=== PATIENT | female | born 1950 | race African-American/Black ===

== ENCOUNTER 2019-07-21 12:13 | Outpatient (CLI) | payer MEDICARE, MEDICAID, SELFPAY ==
--- NOTE | ~2019-07-21 | XR_ITS ---
EXAMINATION: XR lg joint inject/asp w image DATE: 07/21/2019 13:54 INDICATION: Unilateral primary osteoarthritis of the left hip TECHNIQUE: A time-out was performed to verify the patient's name, date of , and procedure to b e performed. The procedure including the risks, benefits, and alternatives was discussed with the pat ient. Risks discussed included bleeding and infection. The patient understood the risks and agreed to proceed. The skin overlying the left hip joint was prepped and draped in usual sterile fashion. An esthetic was administered with 1% lidocaine subcutaneously. A 22 G needle was advanced under fluoros copic guidance into the joint. Injection of 0.5 mL of Omnipaque 240 confirmed intra-articular positi on of the needle. Subsequently, injectate consisting of 7 mL of a 5:2 mixture of 1% lidocaine:10 mg/ mL Kenalog for a total dose of 20 mg Kenalog was instilled. Washout of contrast was seen confirming i ntra-articular administration. The needle was removed and the entry site was cleaned and dressed. Th ere were no immediate complications. Fluoroscopy exposure time was 0.1 minutes. The total number of i mages was 2. FINDINGS: Real-time fluoroscopy demonstrates the needle in the left hip joint. Patient's pain prior t o procedure:7/10. Patient's pain following the procedure: 0/10. IMPRESSION: 1. Left hip injection of local anesthetic and steroid with decrease in the patient's presenting pain. Reviewed, dictated and finalized at location A. IMPRESSION: 1. Left hip injection of local anesthetic and steroid with decrease in the deanne ent's presenting pain.
== END 2019-07-21 12:14 | disposition home or self-care (01) ==
PROVIDERS: Visit Provider Orthopaedic Surgery
DX: M16.12 Unilateral primary osteoarthritis, left hip (principal)
CPT/HCPCS: 20610; 77002; J3301; Q9966

== ENCOUNTER 2020-02-04 19:46 | Observation (INO) | payer MEDICARE, MEDICAID, SELFPAY ==
--- NOTE | ~2020-02-04 | CT_ITS ---
EXAMINATION: CT brain wo con DATE: 02/04/2020 20:31 INDICATION: Altered mental status. TECHNIQUE: Computed tomography (CT) of the head was performed without intravenous contrast. The mA wa s adjusted according to patient size. Iterative reconstruction technique was employed. The dose-lengt h product was 681.00 mGy-cm. COMPARISON: None FINDINGS: There is no intracranial hemorrhage, acute infarction, or abnormal intracranial mass lesion . The ventricles are normal in size. There is mucosal thickening in the paranasal sinuses. The orbits are normal. The mastoid air cells are normal. IMPRESSION: 1. Normal brain. Reviewed, dictated and finalized at location A. CREW MEMBER IMPRESSION: 1. Normal brain.
[2020-02-04 19:53] VITALS: BP 109/74; PULSE 66; RESP 18; TEMP 36.5; O2SAT 100
--- NOTE | 2020-02-04 20:07 | ECG_ITS ---
Measurements Intervals [place] Rate: 60 P: 68 KS: 157 QRS: -4 QRSD: 93 T: 58 QT: 426 QTc: 429 Interpretive Statements SINUS RHYTHM BASELINE WANDER- I, II, AVR, V3, V5 BORDERLINE ECG Electronically Signed On 02-05-2020 7:05:15 REGIONAL SALES DIRECTOR by Johnathon Patino D.O.
--- NOTE | 2020-02-04 20:08 | ED.AMS ---
HPI - Altered Mental Status General Chief Complaint: Overdose Stated Complaint: accidental ingestion of edibles Time Seen by Provider: 02/04/20 19:49 Source: family Mode of arrival: EMS Limitations: no limitations History of Present Illness HPI narrative: Patient 69-year-old female brought in by EMS due to altered mental status, not acting right , described as confusion, not talking, just mumbling. Symptoms started after patient actually took 4 THC edibles thinking it was candies, right after dinner. Son states that the edibles were in the candy packet and the patient did not know that they contained THC. Related Data Home Medications Medication Instructions Recorded Confirmed amlodipine 10 mg PO DAILY 04/27/19 10/08/19 gabapentin 600 mg PO TID 04/27/19 10/08/19 losartan 50 mg PO DAILY 04/27/19 10/08/19 omeprazole 40 mg PO DAILY 04/27/19 10/08/19 rosuvastatin 40 mg PO DAILY 04/27/19 10/08/19 zolpidem 12.5 mg PO HS 04/27/19 10/08/19 Allergies Allergy/AdvReac Type Severity Reaction Status Date / Time acetaminophen Allergy Unknown stomach Verified 07/15/19 14:36 [From Tylenol-Codeine #3] ache codeine Allergy Unknown stomach Verified 07/15/19 14:36 [From Tylenol-Codeine #3] ache Review of Systems Review of Systems: ROS unobtainable: Yes unobtainable due to mental status PMFSH Past Medical History Medical History (Updated 02/04/20 @ 22:03 by Bryan Fung MD) BMI 28.0-28.9,adult Heart disease Nausea alone Pacemaker Surgical History Surgical History History of cholecystectomy History of thymectomy Family History Family History Mother Hypertension Kidney disease Sibling Hypertension Cancer Kidney disease Social History Social History Smoking status: Never smoker Alcohol intake: never Other substance usage details: none Additional occupation/education comments: Disabled Gender identity (if verbalized by the patient): Female Exam Const: General: confusion Limitations: altered mental status and other limitations (Patient nonverbal just mumbling, not following any commands, very confused) HENMT: Head: normal to inspection General nose exam: Normal external nose present, Normal nares present, no nasal discharge noted and no epistaxis Face and sinus: normal facial exam Mouth: Yes lip normal and Yes moist mucous membranes Teeth and gingiva: dentition normal Eyes: Conjunctivae: conjunctivae normal Pupils: Equal, round and reactive pupils present Neck: Neck: normal visual inspection Chest: Chest palpation & inspection: normal inspection of the chest Resp: Effort & Inspection: normal respiratory effort, no retractions and not tachypneic Auscultation: clear to auscultation bilaterally, no crackles, no rales, no rhonchi, no wheezes and lung sounds not diminished Cardio: Rate: regular rate Rhythm: regular rhythm GI: GI Palp: Yes Soft to palpation, No Guarding due to palpation present (GI) and No Rigid due to palpation Auscultation: normal bowel sounds Skin: General skin exam: normal color, no jaundice and no pallor Rashes: no rashes Neuro: Other: Patient slightly lethargic, unable to follow any commands, unable to obtain a full neurological exam Course Course Emergency Course: Patient reexamined around 2129, she still altered, confused we will admit for observation. Discussed with the hospitalist accepted the admit. Vital Signs Vital signs: Vital Signs Temperature 36.5 C 02/04/20 19:53 Pulse Rate 66 02/04/20 19:53 Respiratory Rate 18 02/04/20 19:53 Blood Pressure 109/74 02/04/20 19:53 Pulse Oximetry 100 02/04/20 19:53 Temperature 36.5 C 02/04/20 19:53 Pulse Rate 60 02/04/20 21:45 Respiratory Rate 18 02/04/20 21:45 Blood Pressure 155/67 H 02/04/20 21:45 Pulse Oximetry 99 02/04/20 2
--- NOTE | 2020-02-04 20:23 | PC.NURSE ---
spoke with la at [place] [facility]. report filed
[2020-02-04 20:24] LABS: Basophils Percent Auto 0.5 % (0.2-1.2); Eosinophils Absolute Auto 0.1 K/mm3 (0-0.3); Eosinophils Percent Auto 1.1 % (0-4.4); Hematocrit 33.9 % (37.0-47.0); Hemoglobin 10.9 g/dL (12.0-15.0); Immature Granulocyte Absolute 0.03 K/mm3 (0.00-0.031); Immature Granulocyte Percent A 0.4 % (0-0.5); Lymphocytes Absolute Auto 2.85 K/mm3 (0.9-3.2); Lymphocytes Percent Auto 35.4 % (18.3-44.2); Mean Corpuscular HGB Conc 32.2 g/dl (32-36); Mean Corpuscular Hemoglobin 29.1 pg (26-34); Mean Corpuscular Volume 90.4 fl (80-100); Mean Platelet Volume 11.1 fl (7.4-10.4); Monocytes Absolute Auto 0.7 K/mm3 (0.1-0.6); Monocytes Percent Auto 8.4 % (2.6-8.5); Neutrophils Absolute Auto 4.4 K/mm3 (1.3-6.7); Neutrophils Percent Auto 54.2 % (45.5-73.1); Platelet Count Result 189 k/mm3 (150-375); Red Blood Count 3.75 M/mm3 (4.2-5.4); White Blood Count 8.1 K/mm3 (4.5-10.0)
[2020-02-04 20:40] LABS: Acetaminophen < 10 ug/mL (10-30); Ethanol < 10 mg/dL (<10); Salicylate < 1.0 mg/dL (2-20)
[2020-02-04] MEDS: LORazepam INJ (*CRX) 2 MG/ML VIAL 0.5 MG IV PUSH (20:40)
[2020-02-04] MEDS: LACTATED RINGERS 1,000 ML 999 ML IV CONT (20:41)
[2020-02-04 20:53] LABS: Troponin I < 0.012 ng/mL (0.000-0.034)
[2020-02-04 21:02] LABS: Alanine Aminotransferase 10 U/L (4-35); Albumin Level 4.2 g/dL (3.5-5.1); Alkaline Phosphatase 67 U/L (38-126); Anion Gap 12 mmol/L (8-16); Aspartate Amino Transferase 21 U/L (14-36); Bilirubin,Total 0.4 mg/dL (0.2-1.3); Blood Urea Nitrogen 35 mg/dL (7-17); Calcium 9.5 mg/dL (8.4-10.2); Carbon Dioxide 22 mmol/L (22-30); Chloride 108 mmol/L (98-107); Estimated CRCL calculation 31 ml/min; Estimated Glomerular Filt Rate 39; Glucose 169 mg/dL (65-105); Potassium 3.9 mmol/L (3.4-5.0); Sodium 142 mmol/L (137-145)
[2020-02-04 21:45] VITALS: BP 155/67; PULSE 60; RESP 18; O2SAT 99
--- NOTE | 2020-02-04 21:58 | P.HP_ITS ---
H&P: HPI History of Present Illness Date/Time: 02/04/20 21:58 Chief complaint: accidental ingestion of edibles Narrative: Mackenzie Brown is a 69 year old female [facility] Past Medical History Medical History (Updated 10/08/19 @ 14:45 by Ana Rosa Brown MA) BMI 28.0-28.9,adult Heart disease Nausea alone Pacemaker Surgical History Surgical History History of cholecystectomy History of thymectomy Family History Family History Mother Hypertension Kidney disease Sibling Hypertension Cancer Kidney disease Social History Social History Smoking status: Never smoker Alcohol intake: never Other substance usage details: none Additional occupation/education comments: Disabled Gender identity (if verbalized by the patient): Female Meds Home Medications and Allergies Home Medications Medication Instructions Recorded Confirmed Type amlodipine 10 mg PO DAILY 04/27/19 10/08/19 History gabapentin 600 mg PO TID 04/27/19 10/08/19 History losartan 50 mg PO DAILY 04/27/19 10/08/19 History omeprazole 40 mg PO DAILY 04/27/19 10/08/19 History rosuvastatin 40 mg PO DAILY 04/27/19 10/08/19 History zolpidem 12.5 mg PO HS 04/27/19 10/08/19 History Allergies Allergy/AdvReac Type Severity Reaction Status Date / Time acetaminophen Allergy Unknown stomach Verified 07/15/19 14:36 [From Tylenol-Codeine #3] ache codeine Allergy Unknown stomach Verified 07/15/19 14:36 [From Tylenol-Codeine #3] ache Vital Signs Vital Signs - 24 hr 02/04/20 19:53 02/04/20 21:45 Temperature 36.5 C Pulse Rate 66 60 Respiratory Rate 18 18 Blood Pressure 109/74 155/67 H Pulse Oximetry 100 99 H&P: Results Labs Labs: Short CBC 02/04/20 Range/Units 20:09 WBC 8.1 (4.5-10.0) K/mm3 Hgb 10.9 L (12.0-15.0) g/dL Hct 33.9 L (37.0-47.0) % Plt Count 189 (150-375) k/mm3 BMP 02/04/20 20:08 Sodium 142 Potassium 3.9 Chloride 108 H Carbon Dioxide 22 BUN 35 H D Creatinine 1.60 H Glucose 169 H Calcium 9.5 Cardiac Enzymes 02/04/20 Range/Units 20:09 Troponin I < 0.012 (0.000-0.034) ng/mL Liver Function 02/04/20 Range/Units 20:08 Total Bilirubin 0.4 (0.2-1.3) mg/dL AST 21 (14-36) U/L ALT 10 (4-35) U/L Alkaline Phosphatase 67 (38-126) U/L Albumin 4.2 (3.5-5.1) g/dL
[2020-02-04 22:40] VITALS: BP 135/48; PULSE 61; RESP 18; TEMP 36.2; O2SAT 98; O2SAT 99; BMI 25.9
--- NOTE | 2020-02-04 22:40 | PC.NURSE ---
Complete transfer from stretcher to bed. Disoriented. Unable to answer questions.
--- NOTE | 2020-02-04 22:40 | ADMGEN ---
This patient, Mackenzie Brown, was admitted to -. Patient/family oriented to hospital policies and general routines including ID bracelet, bed and alarms, visiting hours, pain management, procedures, bathroom and other care routines, personal items, smoking policy, room service/diet, and visiting hours. Information on how to activate the Rapid Response Team has been discussed. Patient/Family are encouraged to report perceived risks to care and to ask questions if they do not understand what they are told or what they should do.
[2020-02-04] MEDS: LACTATED RINGERS 1,000 ML 100 ML IV CONT (23:00)
--- NOTE | 2020-02-05 03:11 | PM.SD ---
Same Day Admit/Disch: HPI History of Present Illness Chief complaint: AMS, DRUG OVERDOSE Narrative: Mackenzie Brown is a 69 year old female with past medical history hypertension, GERD, hyperlipidemia, insomnia presents to ED with complaints of altered mental status. She had eaten her nephew's gummies filled with THC, four of them. patient is not taking these kinds of gummies before. She has no history of drug use. patient had a left hip orthopedic surgery planned for 02/05/2020 AM. In the ED: labs stable, vitals stable. She was given ativan as she would not lay still for CT scan. CT head negative. salicylates negative, tyelonol and alcohol negative. EKG sinus rhythm. Patient admitted for observation for drug overdose and then solmnolence from Ativan given in ED. [facility] Past Medical History Medical History BMI 28.0-28.9,adult Essential hypertension GERD (gastroesophageal reflux disease) Heart disease Insomnia Nausea alone Pacemaker Surgical History Surgical History History of cholecystectomy History of thymectomy Family History Family History Mother Hypertension Kidney disease Sibling Hypertension Cancer Kidney disease Social History Social History Smoking status: Never smoker Second hand tobacco smoke exposure: No Alcohol intake: never Substance use: never Other substance usage details: accidental ingest of cannibus gummies,was not aware that they had Cannibus Additional occupation/education comments: Disabled Gender identity (if verbalized by the patient): Female Spiritual care concerns: No Same Day Admit/Disch: Med Pre-admit Medications Home Medications Medication Instructions Recorded Confirmed Type amlodipine 20 mg PO DAILY 04/27/19 02/05/20 History gabapentin 600 mg PO TID 04/27/19 02/05/20 History losartan 100 mg PO DAILY 04/27/19 02/05/20 History omeprazole 40 mg PO DAILY 04/27/19 02/05/20 History rosuvastatin 40 mg PO DAILY 04/27/19 02/05/20 History zolpidem 12.5 mg PO HS 04/27/19 02/05/20 History calcitriol 0.25 mcg PO DAILY 02/05/20 02/05/20 History valacyclovir 500 mg PO DAILY 02/05/20 02/05/20 History Exam Narrative: Exam Narrative: - GENERAL: No acute distress. Well-nourished. pleasant woman - EYES: EOMI. Anicteric. - HENT: Moist mucous membranes. No scleral icterus. - LUNGS: Clear to auscultation bilaterally, no wheezing, rhonchi, or rales. - CARDIOVASCULAR: Regular rate and rhythm. No murmur. No JVD. - ABDOMEN: Soft, non-tender and non-distended. No palpable masses. - EXTREMITIES: No edema. Peripheral pulses 2+. Non-tender. - NEUROLOGIC: No focal neurological deficits. CN II-XII grossly intact. - PSYCHIATRIC: Awake, Alert and oriented x 3. Appropriate mood and affect. - SKIN: No rashes or lesions. Warm. - LYMPH: No cervical lymphadenopathy. DS: Data Data Completed and Pending Labs on day of discharge: Labs from last 24 hours 02/04/20 02/04/20 02/04/20 20:09 20:09 20:09 WBC 8.1 RBC 3.75 L Hgb 10.9 L Hct 33.9 L MCV 90.4 MCH 29.1 MCHC 32.2 RDW 13.0 Plt Count 189 MPV 11.1 H Immature Gran % (Auto) 0.4 Neut % (Auto) 54.2 Lymph % (Auto) 35.4 [place] % (Auto) 8.4 Eos % (Auto) 1.1 Baso % (Auto) 0.5 Lymph # (Auto) 2.85 [place] # (Auto) 0.7 H Eos # (Auto) 0.1 Baso # (Auto) 0.0 Abs Immat Gran (auto) 0.03 Absolute Neuts (auto) 4.4 Absolute Nucleated RBC 0.0 Nucleated RBC % 0.0 Sodium Potassium Chloride Carbon Dioxide Anion Gap BUN Creatinine Estim Creat Clear Calc Estimated GFR Glucose Calcium Total Bilirubin AST ALT Alkaline Phosphatase Troponin I < 0.012 Total Protein Albumin Salicylates <
--- NOTE | 2020-02-05 04:05 | PC.NURSE ---
Alert, Oriented x 3. Discharge instructions reviewed and patient verbalized understanding of information discussed. No complaints voiced. Son at hospital entrance in vehicle. Discharged per wheelchair.
== END 2020-02-05 04:05 | disposition home or self-care (01) ==
LOC: ANHED 22:54 → ANH3MEDSUR 22:58
PROVIDERS: Admitting Provider Student in an Organized Health Care Education/Training Program; Emergency Provider Emergency Medicine; Visit Provider Student in an Organized Health Care Education/Training Program
DX: T40.7X1A Poisoning by cannabis (derivatives), accidental (unintentional), initial encounter (principal); R41.82 Altered mental status, unspecified; N17.9 Acute kidney failure, unspecified; M19.90 Unspecified osteoarthritis, unspecified site; I11.9 Hypertensive heart disease without heart failure; K21.9 Gastro-esophageal reflux disease without esophagitis; E78.5 Hyperlipidemia, unspecified; G47.00 Insomnia, unspecified; Z79.899 Other long term (current) drug therapy; Z95.0 Presence of cardiac pacemaker
CPT/HCPCS: 36415; 70450; 80053; 80307; 84484; 85025; 93005; 96361; 96374; 99285; G0378; J2060; J7120

== ENCOUNTER 2020-06-07 17:33 | Emergency (ER) | payer MEDICARE, MEDICAID, SELFPAY ==
[2020-06-07] VITALS (7 sets, daily range): BP systolic 137–225; BP diastolic 48–85; PULSE 60–71; RESP 12–23; TEMP 36.2–36.9; O2SAT 99–100
--- NOTE | ~2020-06-07 | XR_ITS ---
EXAMINATION: XR chest 1V portable 06/07/2020 21:27 INDICATION: Shortness of breath and hypertension PROCEDURE: AP portable chest COMPARISON: 10/28/2016 FINDINGS: The lungs are clear. The cardiomediastinal silhouette is upper normal limits. Pacemaker le ads in expected position. There are no pleural effusions. There is no pneumothorax suspected. IMPRESSION: 1: NO ACUTE CARDIOPULMONARY DISEASE. Reviewed, dictated and finalized at location A. H PRESS OPERATOR
--- NOTE | ~2020-06-07 | CT_ITS ---
EXAMINATION: CT BRAIN W/O DATE: 06/07/2020 20:27 INDICATION: Headache TECHNIQUE: Computed tomography (CT) of the head was performed without intravenous contrast. The dose- length product was 605.33 mGy-cm. Automated exposure control and iterative reconstruction technique w ere employed. COMPARISON: 02/04/2020. FINDINGS: Normal brain parenchymal volume for age. Normal turcios-white differentiation. No acute intrac ranial hemorrhage, infarction, mass or mass effect. No ventriculomegaly or midline shift. Midline sagittal images demonstrate a normal corpus callosum, c raniovertebral junction and sella turcica. Basilar cisterns are patent. Paranasal sinuses and mastoids are pneumatized. No depressed skull fractures. IMPRESSION: 1. No acute intracranial abnormality. Reviewed, dictated and finalized at location A. CAL BILLING SERVICE
--- NOTE | 2020-06-07 17:40 | ECG_ITS ---
Measurements Intervals [place] Rate: 60 P: 226 KS: 180 QRS: 10 QRSD: 82 T: 45 QT: 421 QTc: 421 Interpretive Statements ELECTRONIC ATRIAL PACEMAKER VOLTAGE CRITERIA FOR LVH BASELINE ARTIFACT- I, V6 BORDERLINE ECG Electronically Signed On 06-07-2020 20:08:07 FABRIC SEPARATOR OPERATOR by Johnathon Patino D.O.
--- NOTE | 2020-06-07 18:28 | PC.NURSE ---
US is gone for the day. Elisa ok for me to cancel that order.
[2020-06-07 20:02] LABS: Basophils Percent Auto 0.7 % (0.2-1.2); Eosinophils Absolute Auto 0.2 K/mm3 (0-0.3); Eosinophils Percent Auto 2.8 % (0-4.4); Hematocrit 39.2 % (37.0-47.0); Hemoglobin 12.4 g/dL (12.0-15.0); Immature Granulocyte Absolute 0.01 K/mm3 (0.00-0.031); Immature Granulocyte Percent A 0.2 % (0-0.5); Lymphocytes Absolute Auto 2.29 K/mm3 (0.9-3.2); Lymphocytes Percent Auto 42.1 % (18.3-44.2); Mean Corpuscular HGB Conc 31.6 g/dl (32-36); Mean Corpuscular Hemoglobin 28.7 pg (26-34); Mean Corpuscular Volume 90.7 fl (80-100); Mean Platelet Volume 11.3 fl (7.4-10.4); Monocytes Absolute Auto 0.5 K/mm3 (0.1-0.6); Neutrophils Absolute Auto 2.5 K/mm3 (1.3-6.7); Neutrophils Percent Auto 45.2 % (45.5-73.1); Platelet Count Result 204 k/mm3 (150-375); Red Blood Count 4.32 M/mm3 (4.2-5.4); Red Cell Distribution Width 13.6 % (11.5-14.5); White Blood Count 5.4 K/mm3 (4.5-10.0)
--- NOTE | 2020-06-07 20:07 | ED.HA ---
HPI - Headache General Chief Complaint: Dizziness Stated Complaint: lower leg swelling Time Seen by Provider: 06/07/20 19:58 History of Present Illness HPI Narrative: 70 yo female w/ h/o htn presents to he Ed with multiple complaints. She reports that she has had severe headaches for the past 4 days. It wraps around her head like a band. She has not had this ttype of headache before. She went to urgent care and was found to have systolic blood pressure greater than 200. She says that she usually checks it every day and it is normal, but she did not check today. She also says that she has been fatigued and had some dyspnea on exertion. She noted some ankle swelling on the left. Uclear when this started. No pain. Related Data Home Medications Medication Instructions Recorded Confirmed amlodipine 20 mg PO DAILY 04/27/19 02/05/20 gabapentin 600 mg PO TID 04/27/19 02/05/20 losartan 100 mg PO DAILY 04/27/19 02/05/20 omeprazole 40 mg PO DAILY 04/27/19 02/05/20 rosuvastatin 40 mg PO DAILY 04/27/19 02/05/20 zolpidem 12.5 mg PO HS 04/27/19 02/05/20 calcitriol 0.25 mcg PO DAILY 02/05/20 02/05/20 valacyclovir 500 mg PO DAILY 02/05/20 02/05/20 Allergies Allergy/AdvReac Type Severity Reaction Status Date / Time acetaminophen Allergy Unknown stomach Verified 02/05/20 00:04 [From Tylenol-Codeine #3] ache codeine Allergy Unknown stomach Verified 02/05/20 00:04 [From Tylenol-Codeine #3] ache Review of Systems Review of Systems: All systems reviewed & are unremarkable except as noted in HPI and below Constitutional: Constitutional: Denies chills, Reports fatigue and Denies fever(s) Eyes: Eyes: Reports no additional eye complaints ENT: Reports system reviewed and no additional complaints, except as documented Cardiovascular: Cardiovascular: Denies chest pain Respiratory: Respiratory: Reports dyspnea Gastrointestinal: Gastrointestinal: Denies abdominal pain, Denies nausea and Denies vomiting Genitourinary: Genitourinary: Reports no additional female genitourinary complaints Musculoskeletal: Musculoskeletal: Reports myalgias Neurologic: Reports headache(s) and Denies weakness [facility] Past Medical History Medical History BMI 28.0-28.9,adult Essential hypertension GERD (gastroesophageal reflux disease) Heart disease Insomnia Nausea alone Pacemaker Surgical History Surgical History History of cholecystectomy History of thymectomy Family History Family History Mother Hypertension Kidney disease Sibling Hypertension Cancer Kidney disease Social History Social History Smoking status: Never smoker Second hand tobacco smoke exposure: No Alcohol intake: never Substance use: never Other substance usage details: accidental ingest of cannibus gummies,was not aware that they had Cannibus Additional occupation/education comments: Disabled Gender identity (if verbalized by the patient): Female Spiritual care concerns: No Exam Const: General: no acute distress and alert Orientation/consciousness: patient oriented x3 HENMT: Head: normal to inspection Ears: TM's normal bilaterally Eyes: Conjunctivae: conjunctivae normal Pupils: Equal, round and reactive pupils present EOM: EOMs intact bilaterally Neck: Neck: normal visual inspection and no lymphadenopathy Chest: Chest palpation & inspection: no tenderness Resp: Effort & Inspection: normal respiratory effort Auscultation: clear to auscultation bilaterally, no rales, no rhonchi and no wheezes Cardio: Jugular venous distension: no JVD Rate: regular rate Rhythm: regular rhythm Heart sounds: no murmurs GI: Inspection: non-distended GI Palp: Yes Soft to palpation and No Tenderness to palpation present (GI) Skin:
[2020-06-07 20:29] LABS: Add Urine Microscopic? YES; Appearance Urine Clear (Clear); Bilirubin Urine Negative (Negative); Blood Urine Negative (Negative); Color Urine Yellow (Yellow); Glucose Urine UA Negative (Negative); Ketones Urine Negative (Negative); Leukocyte Esterase Ur Negative LEU/UL (Negative); Mucus Urine Rare /lpf; Nitrate Urine Negative (Negative); Protein Urine 3+ mg/dL (Negative); RBC Urine 0-2 /hpf (0-2); Specific Grav Ur 1.013 (1.001-1.035); Squamous Epithelial Cell Urine Moderate /hpf (Few); Urobilinogen Urine Negative mg/dL (<2.0); WBC Urine 0-3 /hpf
[2020-06-07] MEDS: hydrALAZINE HCL 20 MG/ML VIAL IV PUSH (21:05)
[2020-06-07] MEDS: METOCLOPRAMIDE HCL INJ 10 MG/2 ML VIAL IV PUSH (21:05)
[2020-06-07 21:15] LABS: Alanine Aminotransferase 10 U/L (4-35); Albumin Level 4.2 g/dL (3.5-5.1); Alkaline Phosphatase 84 U/L (38-126); Anion Gap 5 mmol/L (8-16); Aspartate Amino Transferase 21 U/L (14-36); Bilirubin,Total 0.5 mg/dL (0.2-1.3); Blood Urea Nitrogen 22 mg/dL (7-17); Calcium 9.4 mg/dL (8.4-10.2); Carbon Dioxide 22 mmol/L (22-30); Chloride 114 mmol/L (98-107); Estimated CRCL calculation 37 ml/min; Estimated Glomerular Filt Rate 49; Glucose 89 mg/dL (65-105); Potassium 3.9 mmol/L (3.4-5.0); Sodium 141 mmol/L (137-145)
[2020-06-07] MEDS: diphenhydrAMINE HCl INJ 50 MG/ML VIAL 25 MG IV PUSH (21:35)
[2020-06-07 21:50] LABS: NT Pro B Type Natriuretic Pept 933 PG/ML (5-100); Troponin I < 0.012 ng/mL (0.000-0.034)
== END 2020-06-07 23:56 | disposition home or self-care (01) ==
PROVIDERS: Physician Assistant; Emergency Provider Emergency Medicine
DX: R51.9 Headache, unspecified (principal); R06.00 Dyspnea, unspecified; I11.9 Hypertensive heart disease without heart failure; K21.9 Gastro-esophageal reflux disease without esophagitis; Z95.0 Presence of cardiac pacemaker
CPT/HCPCS: 36415; 70450; 71045; 80053; 81001; 83880; 84484; 85025; 93005; 96365; 96375; 99284; J0131; J0360; J1200; J2765

== ENCOUNTER 2021-05-03 09:07 | Emergency (ER) | payer MEDICARE, MEDICAID, SELFPAY ==
[2021-05-03] VITALS (30 sets, daily range): BP systolic 132–168; BP diastolic 58–83; PULSE 59–64; RESP 12–23; TEMP 36.7; O2SAT 98–100
--- NOTE | ~2021-05-03 | CT_ITS ---
EXAMINATION: CT abdomen pelvis wo con DATE: 05/03/2021 13:33 INDICATION: Diverticulitis. Nausea and vomiting. Diarrhea. TECHNIQUE: Computed tomography (CT) of the abdomen and pelvis was performed without intravenous contr ast. Automated exposure control and iterative reconstruction technique were employed. The dose-length product was 534.69 mGy-cm. COMPARISON: CT abdomen and pelvis 10/28/2016 FINDINGS: The visualized portions of the lung bases demonstrate mild atelectasis. No pleural effusion . The heart size is normal. No pericardial effusion. There are pacer wires in right atrium and right ventricle. There is a small sliding hiatal hernia. There are changes of cholecystectomy. Calcificatio ns in the liver and spleen are consistent with old edematous disease. The pancreas and right adrenal gland are normal. There is an 11 mm mass in left adrenal gland measuring low attenuation, consistent with an adenoma. There is cortical thinning of the kidneys. There are cysts in the kidneys measuring up to 7 mm on the left. There is a 10 mm hemorrhagic cyst in right kidney. There is diverticulosis of the colon without evidence of diverticulitis. The appendix is normal. There are no dilated loops of bowel. There is a lipoma in left iliopsoas muscle. There are no pathologically enlarged lymph nodes. There is no free intraperitoneal fluid. There is a total left hip arthroplasty. There is mild lumbar spondylosis. IMPRESSION: 1. Small sliding hiatal hernia. Reviewed, dictated and finalized at location A. 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
--- NOTE | 2021-05-03 09:43 | ED.GENADULT ---
HPI - General Adult General Chief complaint: Nausea/Vomiting/Diarrhea Stated complaint: nausea/dizzy/diarrhrea Time Seen by Provider: 05/03/21 09:12 Source: patient and RN notes reviewed Mode of arrival: ambulatory Limitations: no limitations History of Present Illness HPI narrative: Patient presented noting that she began to have diarrhea multiple episodes yesterday patient has had some nausea but denies emesis she lives at home by her self has not take anything for symptoms denies any sick contacts she is fully vaccinated for COVID-19. Patient denies any URI symptoms. She notes cramping of the abdomen. She denies any rectal bleeding or melena Related Data Home Medications Medication Instructions Recorded Confirmed amlodipine 20 mg PO DAILY 04/27/19 02/05/20 gabapentin 600 mg PO TID 04/27/19 02/05/20 losartan 100 mg PO DAILY 04/27/19 02/05/20 omeprazole 40 mg PO DAILY 04/27/19 02/05/20 rosuvastatin 40 mg PO DAILY 04/27/19 02/05/20 zolpidem 12.5 mg PO HS 04/27/19 02/05/20 calcitriol 0.25 mcg PO DAILY 02/05/20 02/05/20 valacyclovir 500 mg PO DAILY 02/05/20 02/05/20 valacyclovir 05/03/21 zolpidem PO 05/03/21 Allergies Allergy/AdvReac Type Severity Reaction Status Date / Time codeine AdvReac Unknown stomach Verified 05/03/21 09:43 [From Tylenol-Codeine #3] ache Review of Systems Review of Systems: All systems reviewed & are unremarkable except as noted in HPI and below PMFSH Past Medical History Medical History BMI 28.0-28.9,adult Essential hypertension GERD (gastroesophageal reflux disease) Heart disease Insomnia Nausea alone Pacemaker Surgical History Surgical History History of cholecystectomy History of thymectomy Family History Family History Mother Hypertension Kidney disease Sibling Hypertension Cancer Kidney disease Social History Social History Smoking status: Never smoker Second hand tobacco smoke exposure: No Alcohol intake: never Alcohol use details: none Substance use: never Other substance usage details: accidental ingest of cannibus gummies,was not aware that they had Cannibus Additional occupation/education comments: Disabled Gender identity (if verbalized by the patient): Female Spiritual care concerns: No Exam Narrative: GENERAL: Ill-appearing, well-nourished, and in no acute distress. HEAD: Normocephalic, atraumatic. EYES: PERRLA and EOMI. ENT: Nares clear, no rhinorrhea or epistaxis. Mucous membranes moist. CHEST: Clear to auscultation. No respiratory distress. No wheezes rales or rhonchi HEART: Regular rate and rhythm. No murmur heard. Normal peripheral pulses. ABDOMEN: Soft, mild tenderness of the abdomen no rebound or guarding, nondistended EXTREMITIES: Normal range of motion. No edema. SKIN: Warm, dry, no rash. NEURO: No focal deficits. Alert and oriented x3. Cranial nerves II through XII grossly intact PSYCH: Normal mood and affect. Course Course Emergency Course: Patient presents with abdominal pain nausea and vomiting was evaluated patient was hydrated and given medications with improvement of symptoms feeling much better tolerating p.o. intake she is afebrile nontoxic-appearing nondistressed. She is aware of case findings treatment plan and diagnosis ABCs and vital signs intact and stable feels comfortable with discharge home given indications for return Vital Signs Vital signs: Vital Signs Temperature 98.0 F 05/03/21 09:11 Pulse Rate 60 05/03/21 09:11 Respiratory Rate 18 05/03/21 09:11 Blood Pressure 156/82 H 05/03/21 09:11 Pulse Oximetry 98 05/03/21 09:11 Temperature 98.0 F 05/03/21 09:11 Pulse Rate 59 L 05/03/21 15:03 Respiratory Rate 16 05/03/21 15:03 Blood Pressure
[2021-05-03] MEDS: ONDANSETRON INJ 4 MG/2 ML VIAL IV PUSH ×2 (09:52→14:38)
[2021-05-03] MEDS: FAMOTIDINE 20 MG/2 ML VIAL IV PUSH (09:52)
[2021-05-03 10:23] LABS: Basophils Percent Auto 0.4 % (0.2-1.2); Eosinophils Absolute Auto 0.1 K/mm3 (0-0.3); Eosinophils Percent Auto 0.7 % (0-4.4); Hemoglobin 13.4 g/dL (12.0-15.0); Immature Granulocyte Absolute 0.02 K/mm3 (0.00-0.031); Immature Granulocyte Percent A 0.3 % (0-0.5); Lymphocytes Absolute Auto 1.42 K/mm3 (0.9-3.2); Lymphocytes Percent Auto 20.1 % (18.3-44.2); Mean Corpuscular HGB Conc 32.7 g/dl (32-36); Mean Corpuscular Hemoglobin 30.2 pg (26-34); Mean Corpuscular Volume 92.3 fl (80-100); Monocytes Absolute Auto 0.7 K/mm3 (0.1-0.6); Monocytes Percent Auto 10.5 % (2.6-8.5); Neutrophils Absolute Auto 4.8 K/mm3 (1.3-6.7); Platelet Count Result 190 k/mm3 (150-375); Red Blood Count 4.44 M/mm3 (4.2-5.4); Red Cell Distribution Width 14.9 % (11.5-14.5); White Blood Count 7.1 K/mm3 (4.5-10.0)
[2021-05-03 11:18] LABS: Add Urine Microscopic? YES; Appearance Urine Clear (Clear); Bilirubin Urine Negative (Negative); Blood Urine Negative (Negative); Color Urine Yellow (Yellow); Glucose Urine UA Negative (Negative); Ketones Urine Negative (Negative); Leukocyte Esterase Ur Negative LEU/UL (Negative); Mucus Urine Rare /lpf; Nitrate Urine Negative (Negative); Protein Urine 3+ mg/dL (Negative); RBC Urine 0-2 /hpf (0-2); Specific Grav Ur 1.016 (1.001-1.035); Squamous Epithelial Cell Urine Occasional /hpf (Few); Urobilinogen Urine Negative mg/dL (<2.0); WBC Urine 0-3 /hpf
--- NOTE | 2021-05-03 12:14 | PC.NURSE ---
Pt reports improvement of her symptoms. Resting in NAD currently. This RN attempted to obtain new labs x two attempts unsuccessfully. plastic surgery technician also tried prior to this RN trying. template reproduction technician made aware, will call phlebotomy.
[2021-05-03 13:07] LABS: Alanine Aminotransferase 24 U/L (4-35); Albumin Level 4.4 g/dL (3.5-5.1); Alkaline Phosphatase 72 U/L (38-126); Anion Gap 5 mmol/L (8-16); Aspartate Amino Transferase 26 U/L (14-36); Bilirubin,Total 0.8 mg/dL (0.2-1.3); Blood Urea Nitrogen 29 mg/dL (7-17); Calcium 9.7 mg/dL (8.4-10.2); Carbon Dioxide 26 mmol/L (22-30); Chloride 107 mmol/L (98-107); Estimated CRCL calculation 28 ml/min; Estimated Glomerular Filt Rate 36; Glucose 99 mg/dL (65-110); Lipase 71 U/L (23-300); Potassium 3.8 mmol/L (3.4-5.0); Sodium 138 mmol/L (137-145)
[2021-05-03] MEDS: SODIUM CHLORIDE 0.9% IV 1,000 ML 999 ML IV CONT (14:14)
== END 2021-05-03 16:02 | disposition home or self-care (01) ==
PROVIDERS: Emergency Medicine Emergency Medical Services; Emergency Provider Emergency Medicine
DX: R10.9 Unspecified abdominal pain (principal); R19.7 Diarrhea, unspecified; I10 Essential (primary) hypertension; K21.9 Gastro-esophageal reflux disease without esophagitis; Z95.0 Presence of cardiac pacemaker
CPT/HCPCS: 36415; 74176; 80053; 81001; 83690; 85025; 96361; 96365; 96375; 96376; 99284; J0131; J2405; J7030

== ENCOUNTER 2021-10-25 17:20 | Emergency (ER) | payer MEDICARE, MEDICAID, SELFPAY ==
[2021-10-25] VITALS (30 sets, daily range): BP systolic 107–179; BP diastolic 56–96; PULSE 60–66; RESP 13–22; TEMP 37.1; O2SAT 100
--- NOTE | ~2021-10-25 | XR_ITS ---
EXAMINATION: XR chest 2V Exam Date/Time: 10/25/2021 19:07 CDT HISTORY: lightheadedness, ABD PAIN X 1WK. HX HEART DISEASE, HTN Comparison: 06/07/2020. RESULT: Lines, tubes, and devices: Left chest pacer with intact leads. Cholecystectomy clips. Lungs and pleura: Clear. Cardiomediastinal silhouette: Stable. Other: No acute osseous or upper abdominal finding. IMPRESSION: No acute cardiopulmonary process. Reviewed, dictated and finalized at location K.
--- NOTE | ~2021-10-25 | CT_ITS ---
EXAMINATION: CT abdomen pelvis w con DATE: 10/25/2021 19:06 INDICATION: vomiting, abdominal pain TECHNIQUE: Computed tomography (CT) of the abdomen and pelvis was performed with 100 mL Omnipaque-300 intravenous contrast. Automated exposure control and iterative reconstruction technique were employe d. The dose-length product was 396.01 mGy-cm. COMPARISON: 05/03/2021. FINDINGS: Lower thorax: Incompletely visualized pacer wire. Liver: Normal. Biliary/Gallbladder: Gallbladder is absent. No bile duct dilation. Pancreas: No mass or duct dilation. Spleen: Normal. Adrenals:No mass. Kidneys: Minimal bilateral atrophy/cortical scar. Right midpole 13 mm exophytic indeterminate mass. M ultiple additional hypodensities that are too small to characterize bilaterally. GI tract: No small or large bowel dilation. Normal appendix. Diverticulosis without diverticulitis. Mesentery/Peritoneum: No ascites, mass, or free air. Retroperitoneum: No mass. Atherosclerotic abdominal aortic and/or arterial calcifications. Pelvis: Metallic artifacts obscure pelvic detail. Marked bladder wall thickening. Gas within the blad georgette lumen, may be secondary to recent catheterization or infection. Soft Tissues: Soft tissues and body wall unremarkable. Bones: No acute osseous finding. IMPRESSION: Bladder findings may represent cystitis in the proper clinical context. 2. Indeterminate right adrenal lesion, recommend nonemergent, outpatient renal MRI or CT for further evaluation. Reviewed, dictated and finalized at location K.
--- NOTE | 2021-10-25 18:00 | ECG_ITS ---
Measurements Intervals [place] Rate: 60 P: 249 RI: 174 QRS: 22 QRSD: 92 T: 49 QT: 414 QTc: 414 Interpretive Statements ELECTRONIC ATRIAL PACEMAKER VOLTAGE CRITERIA FOR LVH BASELINE ARTIFACT- I, III, AVL, V5 BORDERLINE ECG Electronically Signed On 10-25-2021 20:14:55 CDT by Johnathon Patino D.O.
--- NOTE | 2021-10-25 18:04 | ED.ABDPAIN ---
HPI - Abdominal Pain General Chief Complaint: Abdominal Pain <Georgiana Joseph PA-C - Last Filed: 10/25/21 21:52> Stated Complaint: abdominal pain, nausea, vomiting <AMY Ojeda Last Filed: 10/25/21 21:52> Time Seen by Provider: 10/25/21 17:53 <Georgiana Joseph PA-C - Last Filed: 10/25/21 21:52> Source: patient <AMY Ojeda Last Filed: 10/25/21 21:52> Mode of arrival: wheelchair <AMY Ojeda Last Filed: 10/25/21 21:52> Limitations: no limitations <AMY Ojeda Last Filed: 10/25/21 21:52> History of Present Illness HPI narrative: This is a 71 year old female that presents to the ER for vomiting and diarrhea. Ongoing over the last couple weeks. Reports she was scheduled for a colonoscopy and endoscopy on of this week. She was called and told it was canceled due to insurance reasons. Denies fever, dysuria, or hematochezia. <AMY Ojeda Last Filed: 10/25/21 21:52> Related Data Home Medications: Home Medications Medication Instructions Recorded Confirmed amlodipine 10 mg tablet 20 mg PO DAILY 04/27/19 02/05/20 gabapentin 600 mg tablet 600 mg PO TID 04/27/19 02/05/20 losartan 50 mg tablet 100 mg PO DAILY 04/27/19 02/05/20 omeprazole 40 mg capsule,delayed 40 mg PO DAILY 04/27/19 02/05/20 release rosuvastatin 40 mg tablet 40 mg PO DAILY 04/27/19 02/05/20 zolpidem 6.25 mg tablet,extended 12.5 mg PO HS 04/27/19 02/05/20 release,multiphase calcitriol 0.25 mcg capsule 0.25 mcg PO DAILY 02/05/20 02/05/20 valacyclovir 500 mg tablet 500 mg PO DAILY 02/05/20 02/05/20 valacyclovir 500 mg tablet 05/03/21 zolpidem 12.5 mg tablet,extended PO 05/03/21 release,multiphase <Georgiana Joseph PA-C - Last Filed: 10/25/21 21:52> Allergies/Adverse Reactions: Allergies Allergy/AdvReac Type Severity Reaction Status Date / Time codeine AdvReac Unknown stomach Verified 10/25/21 18:00 [From Tylenol-Codeine #3] ache <Georgiana Joseph PA-C - Last Filed: 10/25/21 21:52> Review of Systems Review of Systems: CONSTITUTIONAL: Denies fever GASTROINTESTINAL: Reports abdominal pain, nausea, vomiting, and diarrhea. GENITOURINARY: Denies dysuria <Georgiana Joseph PA-C - Last Filed: 10/25/21 21:52> All systems reviewed & are unremarkable except as noted in HPI and below <Georgiana Joseph PA-C - Last Filed: 10/25/21 21:52> [facility] Past Medical History Medical History: Medical History BMI 28.0-28.9,adult Essential hypertension GERD (gastroesophageal reflux disease) Heart disease Insomnia Nausea alone Pacemaker <Georgiana Joseph PA-C - Last Filed: 10/25/21 21:52> Surgical History Surgical History: Surgical History History of cholecystectomy History of thymectomy <Georgiana Joseph PA-C - Last Filed: 10/25/21 21:52> Family History Family History: Family History Mother Hypertension Kidney disease Sibling Hypertension Cancer Kidney disease <Georgiana Joseph PA-C - Last Filed: 10/25/21 21:52> Social History Social History: Social History Smoking status: Never smoker Second hand tobacco smoke exposure: No Alcohol intake: never Alcohol use details: none Substance use: never Other substance usage details: accidental ingest of cannibus gummies,was not aware that they had Cannibus Additional occupation/education comments: Disabled Gender identity (if verbalized by the patient): Female Spiritual care concerns: No <Georgiana Joseph PA-C - Last Filed: 10/25/21 21:52> Exam Narrative: GENERAL: Well-appearing, well-nourished, and in no acute distress. HEAD: Normocephalic, atraumatic. EYES: EOMI. CHEST: Clear to auscultation. No respiratory d
[2021-10-25 18:06] LABS: Basophils Percent Auto 0.7 % (0.2-1.2); Eosinophils Absolute Auto 0.1 K/mm3 (0-0.3); Eosinophils Percent Auto 0.9 % (0-4.4); Hematocrit 34.9 % (37.0-47.0); Hemoglobin 10.8 g/dL (12.0-15.0); Immature Granulocyte Absolute 0.01 K/mm3 (0.00-0.031); Immature Granulocyte Percent A 0.2 % (0-0.5); Lymphocytes Absolute Auto 2.09 K/mm3 (0.9-3.2); Lymphocytes Percent Auto 37.5 % (18.3-44.2); Mean Corpuscular HGB Conc 30.9 g/dl (32-36); Mean Corpuscular Hemoglobin 29.2 pg (26-34); Mean Corpuscular Volume 94.3 fl (80-100); Mean Platelet Volume 10.3 fl (7.4-10.4); Monocytes Absolute Auto 0.6 K/mm3 (0.1-0.6); Monocytes Percent Auto 11.1 % (2.6-8.5); Neutrophils Absolute Auto 2.8 K/mm3 (1.3-6.7); Neutrophils Percent Auto 49.6 % (45.5-73.1); Platelet Count Result 184 k/mm3 (150-375); Red Cell Distribution Width 14.3 % (11.5-14.5); White Blood Count 5.6 K/mm3 (4.5-10.0)
[2021-10-25 18:13] LABS: Alanine Aminotransferase 12 U/L (6-35); Albumin Level 4.4 g/dL (3.5-5.1); Alkaline Phosphatase 59 U/L (38-126); Anion Gap 12 mmol/L (8-16); Aspartate Amino Transferase 20 U/L (14-36); Bilirubin,Total 0.7 mg/dL (0.2-1.3); Blood Urea Nitrogen 16 mg/dL (7-17); Calcium 9.2 mg/dL (8.4-10.2); Carbon Dioxide 23 mmol/L (22-30); Chloride 107 mmol/L (98-107); Estimated CRCL calculation 22 ml/min; Estimated Glomerular Filt Rate 34; Glucose 108 mg/dL (65-110); Lipase 54 U/L (23-300); Potassium 3.6 mmol/L (3.4-5.0); Sodium 142 mmol/L (137-145)
[2021-10-25] MEDS: SODIUM CHLORIDE 0.9% IV 1,000 ML 999 ML IV CONT (18:27)
[2021-10-25] MEDS: PANTOPRAZOLE SODIUM IV 40 MG VIAL IV PUSH (18:29)
[2021-10-25] MEDS: ONDANSETRON INJ 4 MG/2 ML VIAL IV PUSH (18:29)
[2021-10-25 18:39] LABS: INR 1.1; Prothrombin Time 13.5 Seconds (11.1-14.7)
[2021-10-25 18:41] LABS: Partial Thromboplastin Time 33.4 SECONDS (22.3-36.8)
[2021-10-25 18:43] LABS: Bilirubin Urine Negative (Negative); Blood Urine Trace-lysed (Negative); Color Urine Yellow (Yellow); Glucose Urine UA Negative (Negative); Ketones Urine Negative (Negative); Leukocyte Esterase Ur 2+ LEU/UL (Negative); Nitrate Urine Negative (Negative); Protein Urine 3+ mg/dL (Negative); Specific Grav Ur 1.025 (1.001-1.035); Urobilinogen Urine 0.2 mg/dL (<2.0); pH Urine 5.5 (5.0-9.0)
[2021-10-25 19:02] LABS: Add Urine Microscopic? YES; Appearance Urine Cloudy (Clear)
[2021-10-25 19:08] LABS: Bacteria Urine 4+ /hpf; Mucus Urine Rare /lpf; RBC Urine 0-2 /hpf (0-2); Squamous Epithelial Cell Urine Many /hpf (Few); WBC Clumps Urine Present /HPF; WBC Urine >75 /hpf
== END 2021-10-25 22:11 | disposition home or self-care (01) ==
PROVIDERS: Physician Assistant; Emergency Provider Emergency Medicine; PCP Nurse Practitioner Family
DX: N39.0 Urinary tract infection, site not specified (principal); R11.2 Nausea with vomiting, unspecified; E27.9 Disorder of adrenal gland, unspecified; K21.9 Gastro-esophageal reflux disease without esophagitis; I11.9 Hypertensive heart disease without heart failure; Z95.0 Presence of cardiac pacemaker; R10.9 Unspecified abdominal pain
CPT/HCPCS: 36415; 71046; 74177; 80053; 81001; 81025; 83690; 85025; 85610; 85730; 87077; 87086; 87186; 93005; 96361; 96365; 96375; 99284; C9113; J0131; J0696; J2405; J7030; Q9967

== ENCOUNTER 2023-03-21 10:13 | Observation (INO) | payer MEDICARE, MEDICAID, SELFPAY ==
[2023-03-21] VITALS (9 sets, daily range): BP systolic 119–155; BP diastolic 62–80; PULSE 59–69; RESP 18–20; TEMP 36.4–36.9; O2SAT 96–100
--- NOTE | ~2023-03-21 | CT_ITS ---
Non-contrast CT scan of the Abdomen and Pelvis Clinical indication: Abdominal pain Technique: 2.5 mm axial scans were obtained through the abdomen and pelvis without intravenous or or al contrast. Dose reduction technique was used on this scan by utilizing automated exposure control a nd iterative reconstruction technique. The dose-length product (DLP) was 419.35 mGy-cm. COMPARISON: 10/25/2021 Findings: Images through the lung bases reveal minimal pleural fluid bilaterally. 1.6 cm exophytic mass from the right kidney is increased in size from prior exam, with [place] is greater than simple cyst. There is an 8 mm exophytic mass at the left kidney, similar in size to prio r exam. No renal stone or hydronephrosis on either side. The liver, spleen, pancreas, and adrenals appear normal. Cholecystectomy clips are present. There is no aortic aneurysm. There is no evidence of bowel obstruction. Images through the pelvis are degraded by streak artifact from left hip arthroplasty. There is no arti dence of ascites or lymphadenopathy. Questionable urinary bladder wall thickening. No pelvic mass arti dent. Impression: 1.6 cm indeterminate right renal lesion, which appears increased in size from prior exam. Neoplastic lesion is a consideration. Pre and postcontrast MR recommended to further evaluate. 8 mm indeterminate left renal lesion, similar to prior exam. This could also be further evaluated at MR imaging. Questionable cystitis. Correlate clinically. Reviewed, dictated and finalized at [facility]. [facility] Impression: 1.6 cm indeterminate right renal lesion, which appears increased in size from p rior exam. Neoplastic lesion is a consideration. Pre and postcontrast MR recomm ended to further evaluate. 8 mm indeterminate left renal lesion, similar to prior exam. This could also be further evaluated at MR imaging. Questionable cystitis. Correlate clinically.
--- NOTE | ~2023-03-21 | US_ITS ---
EXAMINATION: US renal BI DATE: 03/22/2023 08:38 INDICATION: Acute on chronic kidney injury TECHNIQUE: Multiple grayscale and Doppler ultrasound images of the kidneys were obtained. COMPARISON: CT from yesterday FINDINGS: The right kidney measures 9.6 x 5.6 x 4.7 cm. The left kidney measures 9.4 x 4.8 x 5.2 cm. The kidneys demonstrate increased parenchymal echogenicity. There is a 1.7 cm cyst of the right kidne y. There is a 1.3 cm cyst of the left kidney. There is no hydronephrosis. The bladder is incompletely distended but normal in appearance. IMPRESSION: 1. Medical renal disease Reviewed, dictated and finalized at location D. LVN IMPRESSION: 1. Medical renal disease
--- NOTE | 2023-03-21 10:47 | ED.ABDPAIN ---
HPI - Abdominal Pain General Chief Complaint: Abdominal Pain Stated Complaint: n/v, abd cramping Time Seen by Provider: 03/21/23 10:44 Source: patient History of Present Illness HPI narrative: 70-year-old female presents with nausea and Lower abdominal pain. no vomiting. She describes the pain as cramping. She was scheduled to have an outpatient CT scan performed at 1:30 p.m. today but was in too much pain. pain has been going on for months. She did recently undergo EGD and colonoscopy on 03/15/2023 [facility] [place] (Tayo Varner MD/ WILBUR Rao). she has a follow-up appointment in April to review these results; otherwise had not been told after procedure of any concerning findings. She has had decreased p.o. intake, particularly to solids due to the nausea. She is continuing to trial liquids. The pain is been going on intermittently for the last few days. Her last bowel movement was 3 days ago. She initially denies a history of constipation but does state that it is not unusual for her to go this many days between bowel movements. She denies any blood in bowel movements. In general she does not have an appetite. She denies any fevers, chest pain, difficulty breathing. she has had are action that causes her to itch. Points to pain in her left lower quadrant. Related Data Home Medications Medication Instructions Recorded Confirmed amlodipine 10 mg tablet 10 mg PO DAILY 04/27/19 03/21/23 omeprazole 40 mg capsule,delayed 40 mg PO AC 04/27/19 03/21/23 release rosuvastatin 40 mg tablet 40 mg PO DAILY 04/27/19 03/21/23 valacyclovir 500 mg tablet 500 mg PO DAILY 02/05/20 03/21/23 aspirin 81 mg tablet,delayed 81 mg PO DAILY 03/21/23 03/21/23 release (Adult Low Dose Aspirin) buspirone 5 mg tablet 5 mg PO DAILY 03/21/23 03/21/23 buspirone 5 mg tablet 7.5 mg PO HS 03/21/23 03/21/23 calcitriol 0.5 mcg capsule 0.5 mcg 3XW 03/21/23 03/21/23 carvedilol 3.125 mg tablet 3.125 mg PO BID 03/21/23 03/21/23 cetirizine 10 mg tablet 10 mg PO DAILY 03/21/23 03/21/23 famotidine 20 mg tablet (Pepcid) 40 mg PO HS 03/21/23 03/21/23 furosemide 40 mg tablet 40 mg PO DAILY 03/21/23 03/21/23 promethazine 25 mg tablet 12.5 mg PO Q6H PRN Nausea 03/21/23 03/21/23 zolpidem 12.5 mg tablet,extended 12.5 mg PO HS PRN Sleep 03/21/23 03/21/23 release,multiphase Allergies Allergy/AdvReac Type Severity Reaction Status Date / Time codeine AdvReac Unknown stomach Verified 03/21/23 16:00 [From Tylenol-Codeine #3] ache PMFSH Past Medical History Medical History (Updated 03/25/23 @ 16:51 by Cassi La MD) Arthritis Essential hypertension Gastroesophageal reflux disease Insomnia Surgical History Surgical History History of appendectomy History of section History of cholecystectomy History of hysterectomy History of permanent cardiac pacemaker placement History of thymectomy Family History Family History Mother Hypertension Kidney disease Sibling Hypertension Cancer Kidney disease Social History Social History Social History: Surrogate medical decision maker: Lamont Brown (son). Code status: Full code. Smoking status: Never smoker Second hand tobacco smoke exposure: Yes Alcohol intake: never Alcohol use details: none Substance use: never Other substance usage details: accidental ingest of cannibus gummies,was not aware that they had Cannibus Do You Feel Safe in your Home?: Yes Lack of Transportation: No Lack of Food: Never True Current Housing: I Have Housing Concerned About Future Housing: No Difficulty Paying Gas/Electric Bills: No Difficulty Paying for Meds: No Currently Unemployed: No Education: High School Diploma/GED Difficulty w/ Childcare or Famil
[2023-03-21 11:51] LABS: Basophils Absolute Auto 0.1 K/mm3 (0.0-0.1); Basophils Percent Auto 0.9 % (0.2-1.2); Eosinophils Absolute Auto 0.1 K/mm3 (0-0.3); Eosinophils Percent Auto 2.2 % (0-4.4); Hematocrit 32.6 % (37.0-47.0); Hemoglobin 9.8 g/dL (12.0-15.0); Immature Granulocyte Absolute 0.01 K/mm3 (0.00-0.031); Immature Granulocyte Percent A 0.2 % (0-0.5); Lymphocytes Absolute Auto 1.57 K/mm3 (0.9-3.2); Lymphocytes Percent Auto 29.4 % (18.3-44.2); Mean Corpuscular HGB Conc 30.1 g/dl (32-36); Mean Corpuscular Hemoglobin 28.4 pg (26-34); Mean Corpuscular Volume 94.5 fl (80-100); Mean Platelet Volume 10.8 fl (7.4-10.4); Monocytes Absolute Auto 0.8 K/mm3 (0.1-0.6); Monocytes Percent Auto 14.8 % (2.6-8.5); Neutrophils Absolute Auto 2.8 K/mm3 (1.3-6.7); Neutrophils Percent Auto 52.5 % (45.5-73.1); Platelet Count Result 196 k/mm3 (150-375); Red Blood Count 3.45 M/mm3 (4.2-5.4); Red Cell Distribution Width 12.9 % (11.5-14.5); White Blood Count 5.3 K/mm3 (4.5-10.0)
[2023-03-21] MEDS: SODIUM CHLORIDE 0.9% IV 1,000 ML 999 ML IV CONT (11:51)
[2023-03-21] MEDS: ONDANSETRON INJ 4 MG/2 ML VIAL IV PUSH (11:51)
[2023-03-21] MEDS: MORPHINE SULFATE (*CRX) 4 MG/ML INJ IV PUSH (11:51)
[2023-03-21 11:59] LABS: Estimated CRCL calculation 15 ml/min; Estimated Glomerular Filt Rate 18
[2023-03-21 12:03] LABS: Appearance Urine Clear (Clear); Bacteria Urine None Seen /hpf; Bilirubin Urine Negative (Negative); Blood Urine Negative (Negative); Color Urine Yellow (Yellow); Glucose Urine UA Negative (Negative); Ketones Urine Negative (Negative); Leukocyte Esterase Ur Trace LEU/UL (Negative); Nitrate Urine Negative (Negative); Non Pathogenic Casts 0-2; Protein Urine 2+ mg/dL (Negative); RBC Urine 0-2 /hpf (0-2); Specific Grav Ur 1.013 (1.001-1.035); Squamous Epithelial Cell Urine Occasional /hpf (Few); Urobilinogen Urine 0.2 mg/dL (<2.0); WBC Urine 0-5 /hpf
[2023-03-21 12:05] LABS: Albumin Level 4.3 g/dL (3.5-5.1); Bilirubin,Total 0.6 mg/dL (0.2-1.3); Chloride 106 mmol/L (98-107); Estimated CRCL calculation 17 ml/min; Estimated Glomerular Filt Rate 20; Potassium 3.9 mmol/L (3.4-5.0); Sodium 137 mmol/L (137-145)
[2023-03-21 12:06] LABS: Add Urine Microscopic? YES
[2023-03-21 12:17] LABS: Alanine Aminotransferase 11 U/L (6-35); Alkaline Phosphatase 45 U/L (38-126); Anion Gap 7 mmol/L (8-16); Aspartate Amino Transferase 24 U/L (14-36); Blood Urea Nitrogen 23 mg/dL (7-17); Calcium 9.8 mg/dL (8.4-10.2); Carbon Dioxide 24 mmol/L (22-30); Glucose 91 mg/dL (65-110); Lipase 45 U/L (23-300)
[2023-03-21] MEDS: LACTATED RINGERS 1,000 ML 999 ML IV CONT (13:08)
[2023-03-21 13:45] LABS: Anion Gap 9 mmol/L (8-16); Blood Urea Nitrogen 23 mg/dL (7-17); Calcium 9.9 mg/dL (8.4-10.2); Carbon Dioxide 20 mmol/L (22-30); Chloride 108 mmol/L (98-107); Estimated CRCL calculation 18 ml/min; Estimated Glomerular Filt Rate 21; Glucose 80 mg/dL (65-110); Potassium 3.8 mmol/L (3.4-5.0); Sodium 137 mmol/L (137-145)
[2023-03-21] MEDS: ACETAMINOPHEN 325 MG TABLET 650 MG PO (15:20)
[2023-03-21] MEDS: LACTATED RINGERS 1,000 ML 125 ML IV CONT ×2 (15:21→23:15)
--- NOTE | 2023-03-21 15:43 | ADMGEN ---
This patient, Mackenzie Brown, was admitted to Medical Room 254-01. Patient/family oriented to hospital policies and general routines including ID bracelet, bed and alarms, visiting hours, pain management, procedures, bathroom and other care routines, personal items, smoking policy, room service/diet, and visiting hours. Information on how to activate the Rapid Response Team has been discussed. Patient/Family are encouraged to report perceived risks to care and to ask questions if they do not understand what they are told or what they should do.
--- NOTE | 2023-03-21 16:28 | PM.IMHP ---
H&P: HPI History of Present Illness Date/Time: 03/21/23 16:00 Chief Complaint: Abdominal pain and nausea. Narrative: This is a very pleasant 72-year-old female with hypertension, hyperlipidemia, gastroesophageal reflux disease, and chronic kidney disease stage 3 with a baseline creatinine between 1.3 and 1.82 who presented to the emergency department via private vehicle from home for evaluation of abdominal pain and nausea. The patient provides the following history. She reports GI symptoms for the last several months to include generalized upset stomach, periumbilical discomfort, intermittent nausea which seems to be worse in the morning, bloating, and early satiety. She has lost about 15 lb unintentionally due to ongoing symptoms. She is on famotidine and omeprazole and has prescriptions for ondansetron and promethazine as needed though they did not give her longstanding relief. She has frequent GERD symptoms which are manageable however seem to be worse at night. Her stools are dark on occasion but she has not noticed any bright red blood per rectum. She has had no episodes of emesis or hematemesis. Today she was scheduled for an outpatient CT scan but due to worsening symptoms she came here instead. She was afebrile on arrival with stable vital signs. Labs were significant for hemoglobin of 9.8, BUN 23, creatinine 2.80. She received 2 L IV crystalloid and 4 mg ondansetron. Renal function did not improve with IV fluids and she is being admitted in this setting for further hydration. Review of Systems Review of Systems: Twelve systems were reviewed. No fever, chills, or sweats. No recent cold or flu symptoms. She denies chest pain, pleuritic pain, shortness a breath. No cough. No dysphagia. No dysuria hematuria. She denies difficulties emptying her bladder. She has insomnia and takes open 12.5 mg every night. Except as documented, all other systems were reviewed and are negative. [facility] Past Medical History Medical History (Updated 03/21/23 @ 20:37 by Ester Márquez PA-C) Arthritis Essential hypertension Gastroesophageal reflux disease Insomnia Surgical History Surgical History (Updated 03/21/23 @ 20:32 by Ester Márquez PA-C) History of appendectomy History of section History of cholecystectomy History of hysterectomy History of permanent cardiac pacemaker placement History of thymectomy Family History Family History Mother Hypertension Kidney disease Sibling Hypertension Cancer Kidney disease Social History Social History Social History: Surrogate medical decision maker: Lamont Brown (son). Code status: Full code. Smoking status: Never smoker Second hand tobacco smoke exposure: Yes Alcohol intake: never Alcohol use details: none Substance use: never Other substance usage details: accidental ingest of cannibus gummies,was not aware that they had Cannibus Do You Feel Safe in your Home?: Yes Lack of Transportation: No Lack of Food: Never True Current Housing: I Have Housing Concerned About Future Housing: No Difficulty Paying Gas/Electric Bills: No Difficulty Paying for Meds: No Currently Unemployed: No Education: High School Diploma/GED Difficulty w/ Childcare or Family Care: No Living arrangements: alone Occupation/Education: other Additional occupation/education comments: Disabled Spiritual care concerns: No Meds Home Medications and Allergies Home Medications Medication Instructions Recorded Confirmed Type amlodipine 10 mg tablet 10 mg PO DAILY 04/27/19 03/21/23 History omeprazole 40 mg capsule,delayed 40 mg PO AC 04/27/19 03/21/23 History release rosuvastatin 40 mg tablet 40 mg PO DAILY 04/27/19 03/21/23 History valacyclovir 500 mg tablet 500 mg PO DAILY 02/05/20 03/21/23 History ondansetron 4 mg disintegrating 4 m
[2023-03-21 19:49] LABS: Iron 50 ug/dL (37-170)
[2023-03-21 19:58] LABS: Percent Iron Saturation 22 % (20-50)
[2023-03-21 20:01] LABS: Folic Acid 8.2 ng/mL (2.76->20)
[2023-03-21] MEDS: carvediloL 3.125 MG TABLET PO (20:40)
[2023-03-21] MEDS: busPIRone HCL 5 MG TABLET PO (20:40)
[2023-03-21] MEDS: busPIRone HCL 2.5 MG TABLET PO (20:40)
[2023-03-21] MEDS: diphenhydrAMINE HCl CAP 25 MG CAPSULE PO (20:41)
[2023-03-21] MEDS: FAMOTIDINE 20 MG TABLET 40 MG PO (20:41)
[2023-03-22 04:47] VITALS: BP 149/58; PULSE 60; RESP 20; TEMP 36.5; O2SAT 100
[2023-03-22 04:58] LABS: Hematocrit 27.3 % (37.0-47.0); Hemoglobin 8.2 g/dL (12.0-15.0); Mean Corpuscular Hemoglobin 28.6 pg (26-34); Mean Corpuscular Volume 95.1 fl (80-100); Mean Platelet Volume 10.5 fl (7.4-10.4); Platelet Count Result 175 k/mm3 (150-375); Red Blood Count 2.87 M/mm3 (4.2-5.4); Red Cell Distribution Width 13.1 % (11.5-14.5); White Blood Count 4.7 K/mm3 (4.5-10.0)
[2023-03-22 05:14] LABS: Anion Gap 6 mmol/L (8-16); Blood Urea Nitrogen 22 mg/dL (7-17); Calcium 8.9 mg/dL (8.4-10.2); Carbon Dioxide 23 mmol/L (22-30); Chloride 109 mmol/L (98-107); Estimated CRCL calculation 16 ml/min; Estimated Glomerular Filt Rate 23; Glucose 79 mg/dL (65-110); Magnesium 1.8 mg/dL (1.6-2.3); Potassium 3.6 mmol/L (3.4-5.0); Sodium 138 mmol/L (137-145)
[2023-03-22 09:17] VITALS: BP 151/56; PULSE 59; O2SAT 99
[2023-03-22] MEDS: LACTATED RINGERS 1,000 ML 125 ML IV CONT (09:19)
[2023-03-22] MEDS: ROSUVASTATIN 10 MG TABLET 40 MG PO (09:20)
[2023-03-22] MEDS: ASPIRIN 81 MG ENTERIC TABLET PO (09:21)
[2023-03-22] MEDS: PANTOPRAZOLE 40 MG TABLET PO ×2 (09:22→13:04)
[2023-03-22] MEDS: FUROSEMIDE 40 MG TABLET PO (09:22)
[2023-03-22] MEDS: valACYclovir HCL 500 MG TABLET PO (09:22)
[2023-03-22] MEDS: busPIRone HCL 5 MG TABLET PO (09:22)
[2023-03-22] MEDS: LORATADINE 10 MG TABLET PO (09:22)
[2023-03-22 09:24] VITALS: PULSE 59
[2023-03-22] MEDS: amLODIPine BESYLATE 5 MG TABLET 10 MG PO (09:24)
[2023-03-22] MEDS: carvediloL 3.125 MG TABLET PO (09:24)
[2023-03-22] MEDS: ONDANSETRON INJ 4 MG/2 ML VIAL IV PUSH (09:25)
[2023-03-22 10:40] LABS: IFOB Positive Control Positive; Immunochemical Fecal Occult Bl Negative (N)
[2023-03-22 11:57] VITALS: BMI 25.4
--- NOTE | 2023-03-22 12:35 | PM.DS ---
DS: Admitting Diagnosis Discharge Date 03/22/23 Admitting Diagnosis abdominal pain DS: Discharge Diagnosis Discharge Diagnosis (1) Acute on chronic kidney failure: Code(s): N17.9 - Acute kidney failure, unspecified; N18.9 - Chronic kidney disease, unspecified Status: Acute (2) Abdominal pain: Code(s): R10.9 - Unspecified abdominal pain Status: Acute (3) Normocytic anemia: Code(s): D64.9 - Anemia, unspecified Status: Acute (4) Lesion of [place] kidney: Code(s): N28.9 - Disorder of kidney and ureter, unspecified Status: Acute (5) Essential hypertension: Code(s): I10 - Essential (primary) hypertension Status: Acute (6) Gastroesophageal reflux disease: Code(s): K21.9 - Gastro-esophageal reflux disease without esophagitis Status: Acute DS: Summary Hospital Course Hospital Course: This is a 70-year-old female with past medical history of hypertension, hyperlipidemia, GERD and chronic kidney disease that presented to ED due to several months of generalized abdominal pain and intermittent nausea. She currently sees a GI doctor for this. She had a EGD and colonoscopy performed a couple weeks ago that did not show any abnormalities. She was scheduled to get an outpatient CT scan but due to ongoing abdominal pain she decided come to the ED to get results more quickly. CT showed a 1.6 cm right renal lesion that has been known to the patient for many years and she sees a catalyst operator gasoline for this. She also has 8 mm left renal lesion. Possible cystitis noted although patient's urine was clear. On presentation patient's BUN and creatinine in were 23/3.1. Patient received IV fluids and BUN and creatinine 22/2.5. The last known normal in 2021 was a creatinine of around 1.8. It is likely that patient's kidney function has worsened. Patient does have appointment with her catalyst operator gasoline in approximately 1 week. Will advise the patient we do labs prior to this appointment. Patient states that she is feeling much better but will continue to follow-up with her GI doctor. Patient is medically cleared for discharge at this time. Time Spent with Patient Time attestation: Total time spent providing and/or coordinating discharge services: Exam Narrative: GENERAL: Comfortable, no acute distress HENMT: moist mucous membranes EYES: EOM intact b/l NECK: no lymphadenopathy RESPIRATORY: clear to auscultation CARDIO: RRR GI: soft, nontender, bowel sounds present SKIN: no rashes EXTREMITIES: no edema, redness or tenderness DS: Data Data Completed and Pending Labs on day of discharge: Labs from last 24 hours 03/22/23 03/22/23 03/22/23 10:22 04:38 04:37 WBC 4.7 RBC 2.87 L Hgb 8.2 L Hct 27.3 L MCV 95.1 MCH 28.6 MCHC 30.0 L RDW 13.1 Plt Count 175 MPV 10.5 H Sodium 138 Potassium 3.6 Chloride 109 H Carbon Dioxide 23 Anion Gap 6 L BUN 22 H Creatinine 2.50 H Estim Creat Clear Calc 16 Estimated GFR 23 L Glucose 79 Calcium 8.9 Magnesium 1.8 Iron TIBC % Saturation Ferritin Vitamin B12 Folate TSH (Reflex) Stl Occult Blood (IFOB) Negative 03/21/23 03/21/23 03/21/23 19:03 13:19 11:41 WBC RBC Hgb Hct MCV MCH MCHC RDW Plt Count MPV Sodium 137 Potassium 3.8 Chloride 108 H Carbon Dioxide 20 L Anion Gap 9 BUN 23 H Creatinine 2.70 H Estim Creat Clear Calc 18 Estimated GFR 21 L Glucose 80 Calcium 9.9 Magnesium Iron 50 TIBC 227 L % Saturation 22 Ferritin 84.70 Vitamin B12 931.0 Folate 8.2 TSH (Reflex) 1.950 Stl Occult Blood (IFOB) Discharge Plan Discharge Attending physician on discharge: Miquel Escamilla Discharging Clinician: Alida Richards Patient Disposition: Home, Self-Care Activity: as tolerated Diet: heart healthy Dischar
== END 2023-03-22 13:12 | disposition home or self-care (01) ==
LOC: ANHED 11:27 → ANH2MED 15:54
PROVIDERS: Physician Assistant; Admitting Provider General Practice; Emergency Provider Student in an Organized Health Care Education/Training Program; PCP Internal Medicine Gastroenterology; Visit Provider Internal Medicine
DX: N17.9 Acute kidney failure, unspecified (principal); I12.9 Hypertensive chronic kidney disease with stage 1 through stage 4 chronic kidney disease, or unspecified chronic kidney disease; N18.30 Chronic kidney disease, stage 3 unspecified; D63.1 Anemia in chronic kidney disease; N28.89 Other specified disorders of kidney and ureter; E86.0 Dehydration; R63.0 Anorexia; Z68.25 Body mass index [BMI] 25.0-25.9, adult; K21.9 Gastro-esophageal reflux disease without esophagitis; E78.5 Hyperlipidemia, unspecified; G47.00 Insomnia, unspecified; Z95.0 Presence of cardiac pacemaker; Z90.49 Acquired absence of other specified parts of digestive tract; Z79.82 Long term (current) use of aspirin; Z79.899 Other long term (current) drug therapy; Z82.49 Family history of ischemic heart disease and other diseases of the circulatory system
CPT/HCPCS: 36415; 74176; 76775; 80048; 80053; 81001; 82274; 82607; 82728; 82746; 83540; 83550; 83690; 83735; 84443; 85025; 85027; 96361; 96374; 96375; 96376; 99285; A9270; G0378; J2270; J2405; J7030; J7120

== ENCOUNTER 2023-12-25 17:29 | Inpatient (IN) | payer MEDICARE, MEDICAID, SELFPAY ==
--- NOTE | ~2023-12-25 | XR_ITS ---
XR chest 1V portable Ordering provider: Stephanie Spears MD History: 73 years Female with . RUBI on CKD . Comparison: December 07, 2023 FINDINGS: MEDIASTINUM: The cardiac silhouette is slightly enlarged. Left bipolar pacemaker unchanged. LUNGS: No infiltrates, effusions or pneumothorax. OTHER: No free air under the diaphragm. IMPRESSION: No acute cardiopulmonary pathology. Reviewed, dictated and finalized at location A.
--- NOTE | ~2023-12-25 | US_ITS ---
EXAMINATION: US renal BI DATE: 12/27/2023 09:43 INDICATION: Acute on chronic kidney disease TECHNIQUE: Multiple ultrasound grayscale images of the kidneys were obtained. COMPARISON: None. FINDINGS: The right kidney measures 9.4 x 4.3 x 5.3 cm. The left kidney measures 10.1 x 4.6 x 4.0 cm. There is diffuse increased cortical echogenicity in both kidneys consistent with medical renal disease. There are bilateral anechoic renal cysts measuring 1.5 cm maximal diameter at the lower pole of the right k idney and 1.3 cm at the mid left kidney. There is no hydronephrosis in either kidney. No stones iden tified. The bladder is normal. IMPRESSION: 1. Diffuse bilateral increased renal cortical echogenicity consistent with medical renal disease. No hydronephrosis. Reviewed, dictated and finalized at location A. IMPRESSION: 1. Diffuse bilateral increased renal cortical echogenicity consistent with med ical renal disease. No hydronephrosis.
--- NOTE | ~2023-12-25 | XR_ITS ---
XR chest 1V portable 12/27/2023 10:08 Indication: Acute renal insufficiency Procedure: AP portable chest Comparison: 10/25/2021 Findings: Sequential pacemaker leads in expected position. Heart size upper normal. No focal air spac e disease, pulmonary edema, pleural effusion or suspected pneumothorax. No acute osseous abnormality. Impression: 1: No acute cardiopulmonary disease. Reviewed, dictated and finalized at location B. Impression: 1: No acute cardiopulmonary disease.
[2023-12-25 17:30] VITALS: BP 156/64; PULSE 59; RESP 16; TEMP 36.3; O2SAT 100
[2023-12-25 19:29] VITALS: BP 183/69; PULSE 59; RESP 18; TEMP 36.4; O2SAT 100
[2023-12-25 21:26] LABS: Basophils Percent Auto 0.5 % (0.2-1.2); Eosinophils Absolute Auto 0.2 K/mm3 (0-0.3); Eosinophils Percent Auto 2.6 % (0-4.4); Hematocrit 30.4 % (37.0-47.0); Hemoglobin 9.5 g/dL (12.0-15.0); Immature Granulocyte Absolute 0.03 K/mm3 (0.00-0.031); Immature Granulocyte Percent A 0.4 % (0-0.5); Lymphocytes Absolute Auto 2.25 K/mm3 (0.9-3.2); Lymphocytes Percent Auto 27.4 % (18.3-44.2); Mean Corpuscular HGB Conc 31.3 g/dl (32-36); Mean Corpuscular Volume 92.7 fl (80-100); Mean Platelet Volume 10.2 fl (7.4-10.4); Monocytes Absolute Auto 0.9 K/mm3 (0.1-0.6); Monocytes Percent Auto 10.8 % (2.6-8.5); Neutrophils Absolute Auto 4.8 K/mm3 (1.3-6.7); Neutrophils Percent Auto 58.3 % (45.5-73.1); Platelet Count Result 189 k/mm3 (150-375); Red Blood Count 3.28 M/mm3 (4.2-5.4); Red Cell Distribution Width 14.6 % (11.5-14.5); White Blood Count 8.2 K/mm3 (4.5-10.0)
[2023-12-25 21:33] LABS: Add Urine Microscopic? YES; Appearance Urine Clear (Clear); Bacteria Urine None Seen /hpf; Bilirubin Urine Negative (Negative); Blood Urine Negative (Negative); Color Urine Yellow (Yellow); Glucose Urine UA Negative (Negative); Ketones Urine Negative (Negative); Leukocyte Esterase Ur Negative LEU/UL (Negative); Nitrate Urine Negative (Negative); Non Pathogenic Casts 0-2; Protein Urine 1+ mg/dL (Negative); RBC Urine 0-2 /hpf (0-2); Specific Grav Ur 1.009 (1.001-1.035); Squamous Epithelial Cell Urine None Seen /hpf (Few); Urobilinogen Urine 0.2 mg/dL (<2.0); WBC Urine 0-5 /hpf (0-3); pH Urine 5.5 (5.0-9.0)
--- NOTE | 2023-12-25 21:40 | ED.GENADULT ---
HPI - General Adult General Chief complaint: Recheck/Abnormal Lab/Rx Stated complaint: abn labs Time Seen by Provider: 12/25/23 21:00 History of Present Illness HPI narrative: Patient is a 73-year-old female who presents emergency department this evening after her primary care physician inform her that she needs to present to the ED due to concern for worsening kidney function. Patient admits that she does follow-up with optical technician Dr. Claudio did to history of chronic kidney disease. Patient states that her labs were compared from July and showed worsening of her kidney function and was then prompted to come to the emergency department for further evaluation. Otherwise, patient denies any symptoms including chest pain, shortness of breath, flank pain, urinary symptoms including dysuria or hematuria, abdominal pain, fevers or chills. No additional symptoms or concerns at this time. Related Data Home Medications Medication Instructions Recorded Confirmed amlodipine 10 mg tablet 10 mg PO DAILY 04/27/19 03/21/23 omeprazole 40 mg capsule,delayed 40 mg PO AC 04/27/19 03/21/23 release rosuvastatin 40 mg tablet 40 mg PO DAILY 04/27/19 03/21/23 valacyclovir 500 mg tablet 500 mg PO DAILY 02/05/20 03/21/23 aspirin 81 mg tablet,delayed 81 mg PO DAILY 03/21/23 03/21/23 release (Adult Low Dose Aspirin) buspirone 5 mg tablet 5 mg PO DAILY 03/21/23 03/21/23 buspirone 5 mg tablet 7.5 mg PO HS 03/21/23 03/21/23 calcitriol 0.5 mcg capsule 0.5 mcg 3XW 03/21/23 03/21/23 carvedilol 3.125 mg tablet 3.125 mg PO BID 03/21/23 03/21/23 cetirizine 10 mg tablet 10 mg PO DAILY 03/21/23 03/21/23 famotidine 20 mg tablet (Pepcid) 40 mg PO HS 03/21/23 03/21/23 furosemide 40 mg tablet 40 mg PO DAILY 03/21/23 03/21/23 promethazine 25 mg tablet 12.5 mg PO Q6H PRN Nausea 03/21/23 03/21/23 zolpidem 12.5 mg tablet,extended 12.5 mg PO HS PRN Sleep 03/21/23 03/21/23 release,multiphase Allergies Allergy/AdvReac Type Severity Reaction Status Date / Time codeine AdvReac Unknown stomach Verified 03/21/23 16:00 [From Tylenol-Codeine #3] ache Review of Systems Review of Systems: All systems are reviewed and are negative unless stated otherwise in the HPI. [facility] Past Medical History Medical History Arthritis Essential hypertension Gastroesophageal reflux disease Insomnia Surgical History Surgical History History of appendectomy History of section History of cholecystectomy History of hysterectomy History of permanent cardiac pacemaker placement History of thymectomy Family History Family History Mother Hypertension Kidney disease Sibling Hypertension Cancer Kidney disease Social History Social History Social History: Surrogate medical decision maker: Lamont Brown (son). Code status: Full code. Smoking status: Never smoker Second hand tobacco smoke exposure: Yes Alcohol intake: never Alcohol use details: none Substance use: never Other substance usage details: accidental ingest of cannibus gummies,was not aware that they had Cannibus Do You Feel Safe in your Home?: Yes Lack of Transportation: No Lack of Food: Never True Current Housing: I Have Housing Concerned About Future Housing: No Difficulty Paying Gas/Electric Bills: No Difficulty Paying for Meds: No Currently Unemployed: No Education: High School Diploma/GED Difficulty w/ Childcare or Family Care: No Living arrangements: alone Occupation/Education: other Additional occupation/education comments: Disabled Spiritual care concerns: No Exam Narrative: General: Alert, awake, afebrile, in no acute distress. HEENT: PERRL, no rhinorrhea, no post nasal drip, oropharynx clear. Cardiovascular: Regular ra
[2023-12-25 21:41] LABS: Alanine Aminotransferase 76 U/L (6-35); Albumin Level 4.4 g/dL (3.5-5.1); Alkaline Phosphatase 84 U/L (38-126); Anion Gap 14 mmol/L (4-12); Aspartate Amino Transferase 58 U/L (14-36); Bilirubin,Total 0.3 mg/dL (0.2-1.3); Blood Urea Nitrogen 93 mg/dL (7-17); Calcium 9.8 mg/dL (8.4-10.2); Carbon Dioxide 27 mmol/L (22-30); Chloride 102 mmol/L (98-107); Estimated CRCL calculation 9 ml/min; Estimated Glomerular Filt Rate 10; Glucose 107 mg/dL (65-110); Magnesium 2.3 mg/dL (1.6-2.3); Potassium 3.1 mmol/L (3.4-5.0); Sodium 143 mmol/L (137-145)
[2023-12-25 22:01] VITALS: BP 168/78; PULSE 61; RESP 15; O2SAT 100
--- NOTE | 2023-12-25 22:10 | PM.IMHP ---
H&P: HPI History of Present Illness Date/Time: 12/25/23 22:10 Chief Complaint: abnormal lab work Narrative: This is a 73-year-old female with past medical history significant for hypertension, chronic kidney disease, GERD, DJD. Patient presents to the emergency room due to abnormal lab work it was noted that her creatinine had worsened and patient was sent to the emergency room for further evaluation management and treatment. Patient states that she has had diarrhea for several days and she has continued to take her Lasix and metolazone. Denies any fevers rigors or chills, no nausea or vomiting, has been fatigued, has had lower back pain. preliminary workup was significant for creatinine 5.2, BUN of 93. patient has been placed in observation for further evaluation management and treatment Review of Systems Review of Systems: abnormal lab work, back pain, fatigue, decreased stamina, diarrhea Constitutional: Constitutional: Reports fatigue and Reports weakness PMFSH Past Medical History Medical History (Updated 12/26/23 @ 18:14 by Stephanie Spears MD) Arthritis Essential hypertension Gastroesophageal reflux disease Insomnia Surgical History Surgical History History of appendectomy History of section History of cholecystectomy History of hysterectomy History of permanent cardiac pacemaker placement History of thymectomy Family History Family History (Updated 12/25/23 @ 22:42 by Kimberlee Christianson RN) Mother Kidney disease Hypertension Sibling Kidney disease Hypertension Social History Social History Social History: Surrogate medical decision maker: Lamont Brown (son). Code status: Full code. Smoking status: Never smoker Second hand tobacco smoke exposure: Yes Alcohol intake: never Alcohol use details: none Substance use: never Other substance usage details: accidental ingest of cannibus gummies,was not aware that they had Cannibus Do You Feel Safe in your Home?: Yes Lack of Transportation: No Lack of Food: Never True Current Housing: I Have Housing Concerned About Future Housing: No Difficulty Paying Gas/Electric Bills: No Difficulty Paying for Meds: No Currently Unemployed: No Education: High School Diploma/GED Difficulty w/ Childcare or Family Care: No Living arrangements: alone Occupation/Education: other Additional occupation/education comments: Disabled Spiritual care concerns: No Meds Home Medications and Allergies Home Medications Medication Instructions Recorded Confirmed Type amlodipine 10 mg tablet 10 mg PO DAILY 04/27/19 12/25/23 History omeprazole 40 mg capsule,delayed 40 mg PO DAILY 04/27/19 12/25/23 History release rosuvastatin 40 mg tablet 40 mg PO QPM 04/27/19 12/25/23 History ondansetron 4 mg disintegrating 4 mg PO Q8H PRN nausea and 05/03/21 12/25/23 Rx tablet vomiting #7 tabs buspirone 5 mg tablet 2.5 mg PO BID 03/21/23 12/25/23 History calcitriol 0.5 mcg capsule 0.5 mcg 3XW 03/21/23 12/25/23 History carvedilol 3.125 mg tablet 25 mg PO BID 03/21/23 12/25/23 History cetirizine 10 mg tablet 10 mg PO DAILY PRN sinuses 03/21/23 12/25/23 History famotidine 20 mg tablet (Pepcid) 40 mg PO HS 03/21/23 12/25/23 History furosemide 40 mg tablet 40 mg PO DAILY 03/21/23 12/25/23 History allopurinol 100 mg tablet 100 mg PO DAILY 12/25/23 12/25/23 History apixaban 2.5 mg tablet (Eliquis) 2.5 mg PO DAILY 12/25/23 12/25/23 History eszopiclone 3 mg tablet (Lunesta) 3 mg PO HS PRN Insomnia 12/25/23 12/25/23 History ferrous sulfate 325 mg (65 mg 325 mg PO BID 12/25/23 12/25/23 History iron) tablet metolazone 2.5 mg tablet 2.5 mg PO DAILY 12/25/23 12/25/23 History Allergies Allergy/AdvReac Type Severity Reaction Status Date / Time codeine AdvReac Unknown stomach Verified 03/21/23 16:00 [From Tylenol-Code
--- NOTE | 2023-12-25 22:56 | ADMGEN ---
This patient, Mackenzie Brown, was admitted to Medical Room 251-01. Patient/family oriented to hospital policies and general routines including ID bracelet, bed and alarms, visiting hours, pain management, procedures, bathroom and other care routines, personal items, smoking policy, room service/diet, and visiting hours. Information on how to activate the Rapid Response Team has been discussed. Patient/Family are encouraged to report perceived risks to care and to ask questions if they do not understand what they are told or what they should do.
[2023-12-25] MEDS: ACETAMINOPHEN 500 MG TABLET 1000 MG PO (23:01)
[2023-12-25] MEDS: SODIUM CHLORIDE 0.9% IV 1,000 ML 150 ML IV CONT (23:02)
[2023-12-25 23:12] VITALS: BP 175/69; PULSE 60; RESP 20; TEMP 36.5; O2SAT 100
[2023-12-26] VITALS (7 sets, daily range): BP systolic 119–135; BP diastolic 49–57; PULSE 60; RESP 16–18; TEMP 36.2–36.8; O2SAT 97–100; BMI 27.0
[2023-12-26] MEDS: FERROUS SULFATE 325 MG TABLET DR PO ×2 (09:31→17:42)
[2023-12-26] MEDS: amLODIPine BESYLATE 10 MG TABLET PO (09:31)
[2023-12-26] MEDS: busPIRone HCL 2.5 MG TABLET PO ×2 (09:31→17:43)
[2023-12-26] MEDS: allopurinoL 100 MG TABLET PO (09:31)
[2023-12-26] MEDS: carvediloL 25 MG TABLET PO ×2 (09:32→21:05)
[2023-12-26 10:57] LABS: Basophils Percent Auto 0.4 % (0.2-1.2); Eosinophils Absolute Auto 0.2 K/mm3 (0-0.3); Eosinophils Percent Auto 2.8 % (0-4.4); Hematocrit 26.9 % (37.0-47.0); Hemoglobin 8.4 g/dL (12.0-15.0); Immature Granulocyte Absolute 0.02 K/mm3 (0.00-0.031); Immature Granulocyte Percent A 0.4 % (0-0.5); Lymphocytes Absolute Auto 1.94 K/mm3 (0.9-3.2); Lymphocytes Percent Auto 34.4 % (18.3-44.2); Mean Corpuscular HGB Conc 31.2 g/dl (32-36); Mean Corpuscular Hemoglobin 29.4 pg (26-34); Mean Corpuscular Volume 94.1 fl (80-100); Mean Platelet Volume 10.5 fl (7.4-10.4); Monocytes Absolute Auto 0.6 K/mm3 (0.1-0.6); Monocytes Percent Auto 11.2 % (2.6-8.5); Neutrophils Absolute Auto 2.9 K/mm3 (1.3-6.7); Neutrophils Percent Auto 50.8 % (45.5-73.1); Platelet Count Result 169 k/mm3 (150-375); Red Blood Count 2.86 M/mm3 (4.2-5.4); Red Cell Distribution Width 14.6 % (11.5-14.5); White Blood Count 5.6 K/mm3 (4.5-10.0)
[2023-12-26 11:09] LABS: Alanine Aminotransferase 60 U/L (6-35); Albumin Level 3.9 g/dL (3.5-5.1); Alkaline Phosphatase 61 U/L (38-126); Anion Gap 14 mmol/L (4-12); Aspartate Amino Transferase 50 U/L (14-36); Bilirubin,Total 0.3 mg/dL (0.2-1.3); Blood Urea Nitrogen 84 mg/dL (7-17); Calcium 9.3 mg/dL (8.4-10.2); Carbon Dioxide 22 mmol/L (22-30); Chloride 104 mmol/L (98-107); Estimated CRCL calculation 10 ml/min; Estimated Glomerular Filt Rate 12; Glucose 109 mg/dL (65-110); Potassium 3.1 mmol/L (3.4-5.0); Sodium 140 mmol/L (137-145)
--- NOTE | 2023-12-26 11:18 | PM.IMPN ---
Progress Note: A&P Assessment and Plan (1) Acute on chronic kidney failure: Code(s): N17.9 - Acute kidney failure, unspecified; N18.9 - Chronic kidney disease, unspecified Status: Acute Assessment and Plan: -12/25/23: BUN 93, Creatinine 5.20, GFR 10 -12/26/23: BUN 84, Creatinine 4.50, GFR 12 -Nephrology consult. -Monitor labs. (2) Hypokalemia: Code(s): E87.6 - Hypokalemia Status: Acute Assessment and Plan: - Potassium 3.1. Given Potassium chloride 40 meq PO. - BMP at 15:00 for recheck. (3) Gastroesophageal reflux disease: Code(s): K21.9 - Gastro-esophageal reflux disease without esophagitis Status: Acute Assessment and Plan: - Famotidine 40 mg PO qhs. (4) Essential hypertension: Code(s): I10 - Essential (primary) hypertension Status: Acute Assessment and Plan: - Blood pressure 122/57. - Continue Amlodipine and Carvedilol. (5) Pacemaker: Code(s): Z95.0 - Presence of cardiac pacemaker Status: Acute Assessment and Plan: . (6) Back pain: Code(s): M54.9 - Dorsalgia, unspecified Status: Acute Assessment and Plan: - Acetaminophen for pain. Subjective Date/time seen: 12/26/23 11:18 Interval history: Patient denies chest pain, palpitations, shortness of breath, nausea, vomiting, or difficulty urinating. Patient reports seeing kidney doctor Dr. Claudio. Reports having a bowel movement today. Review of Systems Review of Systems: All systems reviewed & are unremarkable except as noted in HPI and below Exam Const: General: comfortable and no acute distress Eyes: Sclera: sclerae normal Neck: Neck: supple Resp: Effort & Inspection: normal respiratory effort Auscultation: clear to auscultation bilaterally Cardio: Rate: regular rate Rhythm: regular rhythm GI: GI Palp: Yes Soft to palpation Auscultation: normal bowel sounds Neuro: Speech: normal speech Extrem: General: pedal edema bilaterally (trace) Psych: Mental Status: mental status grossly normal Affect: normal affect Objective Data Vital Signs Vital Signs: Vital Signs - 24 hr 12/25/23 17:30 12/25/23 19:29 12/25/23 22:01 Temperature 97.3 F L 97.6 F Pulse Rate 59 L 59 L 61 Respiratory Rate 16 18 15 Blood Pressure 156/64 H 183/69 H 168/78 H Pulse Oximetry 100 100 100 Oxygen Delivery Fraction of Inspired Oxygen 12/25/23 23:12 12/25/23 23:16 12/26/23 04:58 Temperature 97.7 F 97.7 F Pulse Rate 60 60 Respiratory Rate 20 18 Blood Pressure 175/69 H 122/57 L Pulse Oximetry 100 98 Oxygen Delivery Room Air Fraction of Inspired Oxygen 12/26/23 07:24 12/26/23 09:32 Temperature Pulse Rate 60 Respiratory Rate Blood Pressure Pulse Oximetry 98 Oxygen Delivery Room Air Fraction of Inspired Oxygen 21 Intake/Output Intake/Output: Intake & Output 12/23/23 12/24/23 12/25/23 12/26/23 23:59 23:59 23:59 23:59 Intake Total 240 Output Total 0 Balance 240 Meds/Results Medications: Active Medications Generic Name Dose Route Start Last Admin Trade Name Freq PRN Reason Stop Dose Admin Allopurinol 100 mg 12/26/23 09:00 12/26/23 09:31 Allopurinol 100 Mg Tablet PO 100 mg DAILY SANTA Administration Amlodipine Besylate 10 mg 12/26/23 09:00 12/26/23 09:31 Amlodipine Besylate 10 Mg Tablet PO 10 mg DAILY SANTA Administration Apixaban 2.5 mg 12/26/23 09:00 Apixaban 2.5 Mg Tablet PO DAILY SANTA Buspirone HCl 2.5 mg 12/26/23 09:00 12/26/23 09:31 Buspirone Hcl 2.5 Mg Tablet PO 2.5 mg BID SANTA Administration Carvedilol 25 mg 12/26/23 09:00 12/26/23 09:32 Carvedilol 25 Mg Tablet PO 25 mg Q12HR SANTA Administration Famotidine 40 mg 12/26/23 21:00 Famotidine 20 Mg Tablet PO HS SANTA Ferrous Sulfate 325 mg 12/26/23 09:00 12/26/23 09:31 Ferrous Sulfate [address] PO 01/25/24 08:59 325 mg BID SANTA Administration
[2023-12-26] MEDS: POTASSIUM CHLORIDE 20 MEQ ER TABLET 40 MEQ PO (12:16)
[2023-12-26] MEDS: APIXABAN 5 MG TABLET PO ×2 (12:16→21:05)
--- NOTE | 2023-12-26 12:48 | PM.CNNEP ---
Assessment and Plan Assessment and plan (1) Acute kidney injury: Code(s): N17.9 - Acute kidney failure, unspecified Status: Acute Assessment and Plan: etiology(?): possible overdiuresis progression of CKD other? check urine studies, serologies, and renal ultrasound some improvement noted with IVFs hold diuretics for now follow trend of repeat labs ans UOP (2) Chronic kidney disease, stage IV (severe): Code(s): N18.4 - Chronic kidney disease, stage 4 (severe) Status: Chronic Assessment and Plan: from review of records I could find, baseline creatinine runs around 2.1 - 2.6mg/dl in the last year or so presumably due to hypertension and age-related change following for Dr. Claudio for CKD management will attempt to get office records to review (3) Hypokalemia: Code(s): E87.6 - Hypokalemia Status: Acute Assessment and Plan: due to diuretic therapy +/- poor oral intake cautious replacement follow repeat K+ levels (4) Essential hypertension: Code(s): I10 - Essential (primary) hypertension Status: Chronic Assessment and Plan: reasonable control at this time continue home medications follow trend of hemodynamics (5) Anemia: Code(s): D64.9 - Anemia, unspecified Status: Acute Assessment and Plan: due to CKD (?) follow trend of H/H consider STEVE while hospitalized I will continue to follow the patient with you while he remains hospitalized and make further recommendations as deemed necessary. Thank you for allowing me to participate in the care of this patient. History of Present Illness Reason for Consult Consult date: 12/26/23 Reason for consult: acute renal failure (on chronic kidney disease) Chief Complaint Chief complaint: RUBI History of Present Illness Narrative: The patient is a 73-year-old female with a past medical history as outlined below who presented to [facility] Emergency Room at the behest of her primary care physician due to abnormal labs. The patient had recent labs done by her primary care physician for routine follow-up of her chronic medical issues and problems. These laboratory findings apparently showed a significant decline in her kidney function in comparison to baseline. She was directed to come to the emergency room for further assessment. Workup and evaluation emergency room demonstrated the patient to be hemodynamically stable and in no acute distress. Routine blood tests once again confirmed her decline in kidney function with a creatinine of 5.2 mg/dL and a BUN of 93 but no critical electrolyte abnormalities were noted other than mild hypokalemia. On further questioning to the patient, she reports that she has been having some issues and problems with diarrhea and continued to take her antihypertensive medications as well as her diuretics in the context of this symptom. In spite of her abnormal renal function at this time, she does not appear to have any symptoms or problems related to this finding. Her diuretic therapy was placed on hold, she was started on supplemental potassium, and given a trial of IV fluids overnight and subsequently admitted to the hospital for further evaluation and therapy. Since her admission, her renal function has improved slightly by labs done this morning but still not back to baseline. The only previous labs I have to compare to are from March of 2023 when her creatinine was 2.5 mg/dL. Renal consultation was requested due to her acute kidney injury/acute renal failure on top of her baseline chronic kidney disease. The patient normally follows with Dr. Cadena at seeing with regard to management of her chronic kidney disease. From my discussion with the patient, when she last saw Dr. Claudio about 4 months ago, she believes that she was told that her kidneys were working at 26% of normal and but she is unable to give me
[2023-12-26 16:33] LABS: Total Protein Urine Random 57 mg/dL
[2023-12-26 16:49] LABS: Sodium Urine Random 87 meq/L
[2023-12-26 16:54] LABS: Eosinophil Urine None Seen % (None Seen)
[2023-12-26 16:55] LABS: Urine Eos QC 2nd Tech Confirmed
[2023-12-26 17:03] LABS: Creatinine Urine 49.6 mg/dL; Total Protein Urine Random 58 mg/dL; Ur Ttl Prot Creatinine Ratio 1.17 mg/mg (0-0.20)
[2023-12-26 17:11] LABS: Urea Random Urine 388 MG/DL
[2023-12-26 18:19] LABS: Anion Gap 11 mmol/L (4-12); Blood Urea Nitrogen 83 mg/dL (7-17); Calcium 9.4 mg/dL (8.4-10.2); Carbon Dioxide 23 mmol/L (22-30); Chloride 104 mmol/L (98-107); Estimated CRCL calculation 10 ml/min; Estimated Glomerular Filt Rate 12; Glucose 147 mg/dL (65-110); Potassium 3.6 mmol/L (3.4-5.0); Sodium 138 mmol/L (137-145)
[2023-12-26] MEDS: ACETAMINOPHEN 500 MG TABLET 1000 MG PO (21:05)
[2023-12-26] MEDS: FAMOTIDINE 20 MG TABLET 40 MG PO (21:05)
[2023-12-26] MEDS: MELATONIN 3 MG TABLET PO (21:05)
[2023-12-27 04:59] VITALS: BP 120/53; PULSE 60; RESP 17; TEMP 36.6; O2SAT 99
[2023-12-27 05:55] LABS: Basophils Percent Auto 0.3 % (0.2-1.2); Eosinophils Absolute Auto 0.2 K/mm3 (0-0.3); Eosinophils Percent Auto 2.9 % (0-4.4); Hematocrit 28.1 % (37.0-47.0); Hemoglobin 8.6 g/dL (12.0-15.0); Immature Granulocyte Absolute 0.01 K/mm3 (0.00-0.031); Immature Granulocyte Percent A 0.2 % (0-0.5); Lymphocytes Absolute Auto 2.39 K/mm3 (0.9-3.2); Lymphocytes Percent Auto 37.9 % (18.3-44.2); Mean Corpuscular HGB Conc 30.6 g/dl (32-36); Mean Corpuscular Hemoglobin 28.4 pg (26-34); Mean Corpuscular Volume 92.7 fl (80-100); Mean Platelet Volume 9.8 fl (7.4-10.4); Monocytes Absolute Auto 0.6 K/mm3 (0.1-0.6); Monocytes Percent Auto 10.1 % (2.6-8.5); Neutrophils Absolute Auto 3.1 K/mm3 (1.3-6.7); Neutrophils Percent Auto 48.6 % (45.5-73.1); Platelet Count Result 168 k/mm3 (150-375); Red Blood Count 3.03 M/mm3 (4.2-5.4); Red Cell Distribution Width 14.4 % (11.5-14.5); White Blood Count 6.3 K/mm3 (4.5-10.0)
[2023-12-27 06:04] LABS: Alanine Aminotransferase 52 U/L (6-35); Alkaline Phosphatase 64 U/L (38-126); Anion Gap 8 mmol/L (4-12); Aspartate Amino Transferase 34 U/L (14-36); Bilirubin,Total 0.4 mg/dL (0.2-1.3); Blood Urea Nitrogen 78 mg/dL (7-17); Carbon Dioxide 25 mmol/L (22-30); Chloride 107 mmol/L (98-107); Creatine Kinase 45 U/L (30-135); Estimated CRCL calculation 10 ml/min; Estimated Glomerular Filt Rate 11; Glucose 92 mg/dL (65-110); Potassium 3.4 mmol/L (3.4-5.0); Sodium 140 mmol/L (137-145)
[2023-12-27] MEDS: SODIUM CHLORIDE 0.9% IV 1,000 ML 75 ML IV CONT ×2 (08:37→21:55)
[2023-12-27 08:38] VITALS: PULSE 60
[2023-12-27] MEDS: APIXABAN 5 MG TABLET PO ×2 (08:38→20:54)
[2023-12-27] MEDS: busPIRone HCL 2.5 MG TABLET PO ×2 (08:38→16:30)
[2023-12-27] MEDS: allopurinoL 100 MG TABLET PO (08:38)
[2023-12-27] MEDS: amLODIPine BESYLATE 10 MG TABLET PO (08:38)
[2023-12-27] MEDS: carvediloL 25 MG TABLET PO ×2 (08:38→20:54)
[2023-12-27] MEDS: FERROUS SULFATE 325 MG TABLET DR PO ×2 (08:38→16:29)
[2023-12-27] MEDS: ACETAMINOPHEN 500 MG TABLET 1000 MG PO (12:33)
[2023-12-27 14:00] VITALS: BP 124/52; PULSE 60; RESP 14; TEMP 36.4; O2SAT 99
--- NOTE | 2023-12-27 14:21 | PM.IMPN ---
Progress Note: A&P Assessment and Plan (1) Acute on chronic kidney failure: Code(s): N17.9 - Acute kidney failure, unspecified; N18.9 - Chronic kidney disease, unspecified Status: Acute Assessment and Plan: -12/25/23: BUN 93, Creatinine 5.20, GFR 10 -12/26/23: BUN 84, Creatinine 4.50, GFR 12 -12/27/23: BUN 78, Creatinine 4.60, GFR 11 -Nephrology following. -Monitor labs. -Renal ultrasound on 12/27/23 showed: FINDINGS: The right kidney measures 9.4 x 4.3 x 5.3 cm. The left kidney measures 10.1 x 4.6 x 4.0 cm. There is diffuse increased cortical echogenicity in both kidneys consistent with medical renal disease. There are bilateral anechoic renal cysts measuring 1.5 cm maximal diameter at the lower pole of the right kidney and 1.3 cm at the mid left kidney. There is no hydronephrosis in either kidney. No stones identified. The bladder is normal. IMPRESSION: 1. Diffuse bilateral increased renal cortical echogenicity consistent with medical renal disease. No hydronephrosis. -patient is on Lasix at home, will hold Lasix (2) Insomnia: Code(s): G47.00 - Insomnia, unspecified Status: Acute Assessment and Plan: - Unable to get Lunesta, ordered Melatonin 5 mg PO QHS PRN. (3) Gastroesophageal reflux disease: Code(s): K21.9 - Gastro-esophageal reflux disease without esophagitis Status: Acute Assessment and Plan: - PPI (4) Back pain: Code(s): M54.9 - Dorsalgia, unspecified Status: Acute Assessment and Plan: -Tylenol p.r.n. (5) Essential hypertension: Code(s): I10 - Essential (primary) hypertension Status: Chronic Assessment and Plan: - Blood pressure 120/53 - continue amlodipine (6) Pacemaker: Code(s): Z95.0 - Presence of cardiac pacemaker Status: Acute Assessment and Plan: -continue to monitor Subjective Date/time seen: 12/27/23 14:21 Interval history: Patient denies chest pain, palpitations, shortness of breath, nausea, vomiting, or difficulty urinating. Patient reports seeing kidney doctor Dr. Claudio. Patient reports difficulty sleeping last night. She took the Melatonin last night, hospital does not carry her home medication Lunesta. Patient reports 5 episodes of diarrhea yesterday that has subsided at present. Review of Systems Review of Systems: All systems reviewed & are unremarkable except as noted in HPI and below Exam Const: General: comfortable and no acute distress Eyes: Sclera: sclerae normal Neck: Neck: supple Resp: Effort & Inspection: normal respiratory effort Auscultation: clear to auscultation bilaterally Cardio: Rate: regular rate Rhythm: regular rhythm GI: GI Palp: Yes Soft to palpation Auscultation: normal bowel sounds Extrem: General: pedal edema bilaterally (trace) Psych: Mental Status: mental status grossly normal Affect: normal affect Objective Data Vital Signs Vital Signs: Vital Signs - 24 hr 12/26/23 17:26 12/26/23 20:04 12/26/23 21:05 Temperature 97.1 F L 98.2 F Pulse Rate 60 60 60 Respiratory Rate 16 17 Blood Pressure 135/56 L 119/49 L Pulse Oximetry 100 97 Oxygen Delivery 12/26/23 20:00 12/26/23 21:25 12/27/23 04:59 Temperature 97.8 F Pulse Rate 60 Respiratory Rate 17 Blood Pressure 120/53 L Pulse Oximetry 97 99 Oxygen Delivery Room Air Room Air 12/27/23 08:38 Temperature Pulse Rate 60 Respiratory Rate Blood Pressure Pulse Oximetry Oxygen Delivery Intake/Output Intake/Output: Intake & Output 12/24/23 12/25/23 12/26/23 12/27/23 23:59 23:59 23:59 23:59 Intake Total 1220 340 Output Total 0 Balance 1220 340 Meds/Results Medications: Active Medications Generic Name Dose Route Start Last Admin Trade Name Freq PRN Reason Stop Dose Admin Acetaminophen 1,000 mg 12/26/23 20:36 12/27/23 12:33 Acetaminophen 500 Mg Tablet PO 1,000 mg Q6H PRN Administration Mild Pain (1-3
--- NOTE | 2023-12-27 15:03 | P.PNNP_ITS ---
Progress Note: A&P Assessment and Plan (1) Acute kidney injury: Code(s): N17.9 - Acute kidney failure, unspecified Status: Acute Assessment and Plan: * etiology(?): * possible overdiuresis * progression of CKD * other? * evaluation to date noted: * renal ultrasound c/w CKD * urine electrolytes (by FeNA and FeUrea) non-prerenal * urine eosinophils negative * moderate proteinuria * CPK normal * holding diuretics for now (CXR clear and no swelling/edema noted) * rechallenge with IVFs today * follow trend of repeat labs and UOP (2) Chronic kidney disease, stage IV (severe): Code(s): N18.4 - Chronic kidney disease, stage 4 (severe) Status: Chronic Assessment and Plan: * from review of records I could find, baseline creatinine runs around 2.1 - 2.6mg/dl in the last year or so * cannot deny the possibility of CKD progression playing a role * presumably due to hypertension and age-related change * follows with Dr. Claudio for CKD management * attempting to get office records to review (3) Hypokalemia: Code(s): E87.6 - Hypokalemia Status: Acute Assessment and Plan: * due to diuretic therapy +/- poor oral intake +/- previous diarrhea * cautious replacement * follow repeat K+ levels (4) Essential hypertension: Code(s): I10 - Essential (primary) hypertension Status: Chronic Assessment and Plan: * reasonable control at this time * continue home medications * follow trend of hemodynamics (5) Anemia: Code(s): D64.9 - Anemia, unspecified Status: Acute Assessment and Plan: * due to CKD (?) * follow trend of H/H * consider STEVE while hospitalized Will continue to follow. Subjective Date/time seen: 12/27/23 15:03 Interval history: Follow-up for acute kidney injury/acute renal failure on chronic kidney disease. Reports ongoing diarrhea yesterday afternoon but seems to be doing better now; difficulty sleeping last night as well; no real significant improvement in renal function in the last 24 hours; still making reasonable urine output; no apparent distress noted. Exam Narrative: General: elderly but WD/WN female in NAD Heart: normal S1 and S2; no rub Lungs: clear to auscultation Abdomen: soft, nontender, nondistended, positive bowel sounds Extremities: no cyanosis or clubbing; no edema Skin: warm and dry Objective Data Vital Signs Vital Signs: Vital Signs Temp Pulse Resp BP Pulse Ox O2 Del Method 12/27/23 14:00 97.6 F 60 14 124/52 L 99 12/27/23 08:38 60 12/27/23 04:59 97.8 F 60 17 120/53 L 99 12/26/23 21:25 97 Room Air 12/26/23 20:00 Room Air 12/26/23 21:05 60 12/26/23 20:04 98.2 F 60 17 119/49 L 97 12/26/23 17:26 97.1 F L 60 16 135/56 L 100 Intake/Output Intake/Output: Intake & Output 12/24/23 12/25/23 12/26/23 12/27/23 23:59 23:59 23:59 23:59 Intake Total 1220 520 Output Total 0 Balance 1220 520 Meds/Results Medications: Active Medications Generic Name Dose Route Start Last Admin Trade Name Freq PRN Reason Stop Dose Admin
--- NOTE | 2023-12-27 15:03 | PM.PNNEP ---
Progress Note: A&P Assessment and Plan (1) Acute kidney injury: Code(s): N17.9 - Acute kidney failure, unspecified Status: Acute Assessment and Plan: etiology(?): possible overdiuresis progression of CKD other? evaluation to date noted: renal ultrasound c/w CKD urine electrolytes (by FeNA and FeUrea) non-prerenal urine eosinophils negative moderate proteinuria CPK normal holding diuretics for now (CXR clear and no swelling/edema noted) rechallenge with IVFs today follow trend of repeat labs and UOP (2) Chronic kidney disease, stage IV (severe): Code(s): N18.4 - Chronic kidney disease, stage 4 (severe) Status: Chronic Assessment and Plan: from review of records I could find, baseline creatinine runs around 2.1 - 2.6mg/dl in the last year or so cannot deny the possibility of CKD progression playing a role presumably due to hypertension and age-related change follows with Dr. Claudio for CKD management attempting to get office records to review (3) Hypokalemia: Code(s): E87.6 - Hypokalemia Status: Acute Assessment and Plan: due to diuretic therapy +/- poor oral intake +/- previous diarrhea cautious replacement follow repeat K+ levels (4) Essential hypertension: Code(s): I10 - Essential (primary) hypertension Status: Chronic Assessment and Plan: reasonable control at this time continue home medications follow trend of hemodynamics (5) Anemia: Code(s): D64.9 - Anemia, unspecified Status: Acute Assessment and Plan: due to CKD (?) follow trend of H/H consider STEVE while hospitalized Will continue to follow. Subjective Date/time seen: 12/27/23 15:03 Interval history: Follow-up for acute kidney injury/acute renal failure on chronic kidney disease. Reports ongoing diarrhea yesterday afternoon but seems to be doing better now; difficulty sleeping last night as well; no real significant improvement in renal function in the last 24 hours; still making reasonable urine output; no apparent distress noted. Exam Narrative: General: elderly but WD/WN female in NAD Heart: normal S1 and S2; no rub Lungs: clear to auscultation Abdomen: soft, nontender, nondistended, positive bowel sounds Extremities: no cyanosis or clubbing; no edema Skin: warm and dry Objective Data Vital Signs Vital Signs: Vital Signs Temp Pulse Resp BP Pulse Ox O2 Del Method 12/27/23 14:00 97.6 F 60 14 124/52 L 99 12/27/23 08:38 60 12/27/23 04:59 97.8 F 60 17 120/53 L 99 12/26/23 21:25 97 Room Air 12/26/23 20:00 Room Air 12/26/23 21:05 60 12/26/23 20:04 98.2 F 60 17 119/49 L 97 12/26/23 17:26 97.1 F L 60 16 135/56 L 100 Intake/Output Intake/Output: Intake & Output 12/24/23 12/25/23 12/26/23 12/27/23 23:59 23:59 23:59 23:59 Intake Total 1220 520 Output Total 0 Balance 1220 520 Meds/Results Medications: Active Medications Generic Name Dose Route Start Last Admin Trade Name Freq PRN Reason Stop Dose Admin Acetaminophen 1,000 mg 12/26/23 20:36 12/27/23 12:33 Acetaminophen 500 Mg Tablet PO 1,000 mg Q6H PRN Administration Mild Pain (1-3) or Fever Allopurinol 100 mg 12/26/23 09:00 12/27/23 08:38 Allopurinol 100 Mg Tablet PO 100 mg DAILY SANTA Administration Amlodipine Besylate 10 mg 12/26/23 09:00 12/27/23 08:38 Amlodipine Besylate 10 Mg Tablet PO 10 mg DAILY SANTA Administration Apixaban 5 mg 12/26/23 11:25 12/27/23 08:38 Apixaban 5 Mg Tablet PO 5 mg Q12HR SANTA Administration Buspirone HCl 2.5 mg 12/26/23 09:00 12/27/23 08:38 Buspirone Hcl 2.5 Mg Tablet PO 2.5 mg BID SANTA Administration Carvedilol 25 mg 12/26/23 09:00 12/27/23 08:38 Carvedilol 25 Mg Tablet PO 25 mg Q12HR SANTA Administration Famotidine 40 mg 12/26/23 21:00
[2023-12-27 20:01] VITALS: BP 126/49; PULSE 60; RESP 20; TEMP 36.6; O2SAT 100
[2023-12-27 20:54] VITALS: PULSE 60
[2023-12-27] MEDS: MELATONIN 5 MG TABLET PO (20:54)
[2023-12-27] MEDS: FAMOTIDINE 20 MG TABLET 40 MG PO (20:54)
[2023-12-28] MEDS: ACETAMINOPHEN 500 MG TABLET 1000 MG PO ×2 (00:41→08:30)
[2023-12-28 05:20] VITALS: BP 143/52; PULSE 61; RESP 18; TEMP 36.8; O2SAT 100
[2023-12-28 05:52] LABS: Basophils Percent Auto 0.5 % (0.2-1.2); Eosinophils Absolute Auto 0.2 K/mm3 (0-0.3); Eosinophils Percent Auto 2.9 % (0-4.4); Hematocrit 27.3 % (37.0-47.0); Hemoglobin 8.6 g/dL (12.0-15.0); Immature Granulocyte Absolute 0.01 K/mm3 (0.00-0.031); Immature Granulocyte Percent A 0.2 % (0-0.5); Lymphocytes Absolute Auto 2.01 K/mm3 (0.9-3.2); Lymphocytes Percent Auto 34.5 % (18.3-44.2); Mean Corpuscular HGB Conc 31.5 g/dl (32-36); Mean Corpuscular Hemoglobin 29.6 pg (26-34); Mean Corpuscular Volume 93.8 fl (80-100); Mean Platelet Volume 10.5 fl (7.4-10.4); Monocytes Absolute Auto 0.7 K/mm3 (0.1-0.6); Monocytes Percent Auto 11.7 % (2.6-8.5); Neutrophils Absolute Auto 2.9 K/mm3 (1.3-6.7); Neutrophils Percent Auto 50.2 % (45.5-73.1); Platelet Count Result 157 k/mm3 (150-375); Red Blood Count 2.91 M/mm3 (4.2-5.4); Red Cell Distribution Width 14.6 % (11.5-14.5); White Blood Count 5.8 K/mm3 (4.5-10.0)
[2023-12-28 06:13] LABS: Alanine Aminotransferase 38 U/L (6-35); Albumin Level 3.6 g/dL (3.5-5.1); Alkaline Phosphatase 58 U/L (38-126); Anion Gap 11 mmol/L (4-12); Aspartate Amino Transferase 22 U/L (14-36); Bilirubin,Total 0.3 mg/dL (0.2-1.3); Blood Urea Nitrogen 66 mg/dL (7-17); Calcium 9.8 mg/dL (8.4-10.2); Carbon Dioxide 20 mmol/L (22-30); Chloride 109 mmol/L (98-107); Estimated CRCL calculation 12 ml/min; Estimated Glomerular Filt Rate 15; Glucose 100 mg/dL (65-110); Potassium 3.3 mmol/L (3.4-5.0); Sodium 140 mmol/L (137-145)
[2023-12-28 07:48] LABS: Glucose Point of Care 98 mg/dl (65-105)
[2023-12-28 08:23] VITALS: PULSE 60
[2023-12-28] MEDS: APIXABAN 5 MG TABLET PO ×2 (08:23→20:31)
[2023-12-28] MEDS: POTASSIUM CHLORIDE 20 MEQ ER TABLET 40 MEQ PO (08:23)
[2023-12-28] MEDS: amLODIPine BESYLATE 10 MG TABLET PO (08:23)
[2023-12-28] MEDS: allopurinoL 100 MG TABLET PO (08:23)
[2023-12-28] MEDS: carvediloL 25 MG TABLET PO ×2 (08:23→20:31)
[2023-12-28] MEDS: busPIRone HCL 2.5 MG TABLET PO ×2 (08:23→16:40)
[2023-12-28] MEDS: FERROUS SULFATE 325 MG TABLET DR PO ×2 (08:23→16:38)
--- NOTE | 2023-12-28 11:47 | PM.PNNEP ---
Progress Note: A&P Assessment and Plan (1) Acute kidney injury: Code(s): N17.9 - Acute kidney failure, unspecified Status: Acute Assessment and Plan: slow improvement noted etiology(?): possible overdiuresis progression of CKD other? evaluation to date noted: renal ultrasound c/w CKD urine electrolytes (by FeNA and FeUrea) non-prerenal urine eosinophils negative moderate proteinuria CPK normal holding diuretics for now (CXR clear and no swelling/edema noted) on IVFs -- wean off as tolerated follow trend of repeat labs and UOP (2) Chronic kidney disease, stage IV (severe): Code(s): N18.4 - Chronic kidney disease, stage 4 (severe) Status: Chronic Assessment and Plan: from review of records I could find, baseline creatinine runs around 2.1 - 2.6mg/dl in the last year or so cannot deny the possibility of CKD progression playing a role presumably due to hypertension and age-related change follows with Dr. Claudio for CKD management attempted to get office records (from Dr. Claudio) to review but still unavailable (3) Hypokalemia: Code(s): E87.6 - Hypokalemia Status: Acute Assessment and Plan: due to diuretic therapy +/- poor oral intake +/- previous diarrhea cautious replacement follow repeat K+ levels (4) Essential hypertension: Code(s): I10 - Essential (primary) hypertension Status: Chronic Assessment and Plan: reasonable control at this time continue home medications follow trend of hemodynamics (5) Anemia: Code(s): D64.9 - Anemia, unspecified Status: Acute Assessment and Plan: due to CKD (?) follow trend of H/H - relatively stable consider STEVE while hospitalized if H/H worsens Will continue to follow. Subjective Date/time seen: 12/28/23 11:47 Interval history: Follow-up for acute kidney injury/acute renal failure on chronic kidney disease. Continues to do well at the time of my visit; no apparent distress noted; diarrhea seems to have resolved; renal function/creatinine continues to improve gentle IVF hydration and holding diuretics; no issues with shortness of breath or lower extremity edema voiced; no events overnight or earlier this morning. Exam Narrative: General: elderly but WD/WN female in NAD Heart: normal S1 and S2; no rub Lungs: clear to auscultation Abdomen: soft, nontender, nondistended, positive bowel sounds Extremities: no cyanosis or clubbing; no edema Skin: warm and intact Objective Data Vital Signs Vital Signs: Vital Signs Temp Pulse Resp BP Pulse Ox 12/28/23 14:00 97.4 F L 63 16 130/41 L 100 12/28/23 08:23 60 12/28/23 05:20 98.3 F 61 18 143/52 H 100 12/27/23 20:54 60 12/27/23 20:01 97.9 F 60 20 126/49 L 100 Intake/Output Intake/Output: Intake & Output 12/25/23 12/26/23 12/27/23 12/28/23 23:59 23:59 23:59 23:59 Intake Total 1220 3647.5 1600 Output Total 0 Balance 1220 3647.5 1600 Meds/Results Medications: Active Medications Generic Name Dose Route Start Last Admin Trade Name Freq PRN Reason Stop Dose Admin Acetaminophen 1,000 mg 12/26/23 20:36 12/28/23 08:30 Acetaminophen 500 Mg Tablet PO 1,000 mg Q6H PRN Administration Mild Pain (1-3) or Fever Allopurinol 100 mg 12/26/23 09:00 12/28/23 08:23 Allopurinol 100 Mg Tablet PO 100 mg DAILY SANTA Administration Amlodipine Besylate 10 mg 12/26/23 09:00 12/28/23 08:23 Amlodipine Besylate 10 Mg Tablet PO 10 mg DAILY SANTA Administration Apixaban 5 mg 12/26/23 11:25 12/28/23 08:23 Apixaban 5 Mg Tablet PO 5 mg Q12HR SANTA Administration Buspirone HCl 2.5 mg 12/26/23 09:00 12/28/23 08:23 Buspirone Hcl 2.5 Mg Tablet PO 2.5 mg BID SANTA Administration Carvedilol 25 mg 12/26/23 09:00 12/28/23 08:23 Carvedilol 25 Mg Tablet PO 25 mg Q12HR SANTA Administration F
--- NOTE | 2023-12-28 11:47 | P.PNNP_ITS ---
Progress Note: A&P Assessment and Plan (1) Acute kidney injury: Code(s): N17.9 - Acute kidney failure, unspecified Status: Acute Assessment and Plan: * slow improvement noted * etiology(?): * possible overdiuresis * progression of CKD * other? * evaluation to date noted: * renal ultrasound c/w CKD * urine electrolytes (by FeNA and FeUrea) non-prerenal * urine eosinophils negative * moderate proteinuria * CPK normal * holding diuretics for now (CXR clear and no swelling/edema noted) * on IVFs -- wean off as tolerated * follow trend of repeat labs and UOP (2) Chronic kidney disease, stage IV (severe): Code(s): N18.4 - Chronic kidney disease, stage 4 (severe) Status: Chronic Assessment and Plan: * from review of records I could find, baseline creatinine runs around 2.1 - 2.6mg/dl in the last year or so * cannot deny the possibility of CKD progression playing a role * presumably due to hypertension and age-related change * follows with Dr. Claudio for CKD management * attempted to get office records (from Dr. Claudio) to review but still unavailable (3) Hypokalemia: Code(s): E87.6 - Hypokalemia Status: Acute Assessment and Plan: * due to diuretic therapy +/- poor oral intake +/- previous diarrhea * cautious replacement * follow repeat K+ levels (4) Essential hypertension: Code(s): I10 - Essential (primary) hypertension Status: Chronic Assessment and Plan: * reasonable control at this time * continue home medications * follow trend of hemodynamics (5) Anemia: Code(s): D64.9 - Anemia, unspecified Status: Acute Assessment and Plan: * due to CKD (?) * follow trend of H/H - relatively stable * consider STEVE while hospitalized if H/H worsens Will continue to follow. Subjective Date/time seen: 12/28/23 11:47 Interval history: Follow-up for acute kidney injury/acute renal failure on chronic kidney disease. Continues to do well at the time of my visit; no apparent distress noted; diarrhea seems to have resolved; renal function/creatinine continues to improve gentle IVF hydration and holding diuretics; no issues with shortness of breath or lower extremity edema voiced; no events overnight or earlier this morning. Exam 2 Narrative: General: elderly but WD/WN female in NAD Heart: normal S1 and S2; no rub Lungs: clear to auscultation Abdomen: soft, nontender, nondistended, positive bowel sounds Extremities: no cyanosis or clubbing; no edema Skin: warm and intact Objective Data Vital Signs Vital Signs: Vital Signs Temp Pulse Resp BP Pulse Ox 12/28/23 14:00 97.4 F L 63 16 130/41 L 100 12/28/23 08:23 60 12/28/23 05:20 98.3 F 61 18 143/52 H 100 12/27/23 20:54 60 12/27/23 20:01 97.9 F 60 20 126/49 L 100 Intake/Output Intake/Output: Intake & Output 12/25/23 12/26/23 12/27/23 12/28/23 23:59 23:59 23:59 23:59 Intake Total 1220 3647.5 1600 Output Total 0 Balance 1220 3647.5 1600 Meds/Results Medications: Active Medications Generic Name Dose Route Start Last Admin Trade Name Freq PRN Reason Stop D
--- NOTE | 2023-12-28 13:16 | PM.IMPN ---
Progress Note: A&P Assessment and Plan (1) Acute on chronic kidney failure: Code(s): N17.9 - Acute kidney failure, unspecified; N18.9 - Chronic kidney disease, unspecified Status: Acute Assessment and Plan: -12/25/23: BUN 93, Creatinine 5.20, GFR 10 -12/26/23: BUN 84, Creatinine 4.50, GFR 12 -12/27/23: BUN 78, Creatinine 4.60, GFR 11 -12/28/23: BUN 66, Creatinine 3.60, GFR 15 -Nephrology following. Receiving NS@75 ml/hr. -Monitor labs. -Renal ultrasound on 12/27/23 showed: FINDINGS: The right kidney measures 9.4 x 4.3 x 5.3 cm. The left kidney measures 10.1 x 4.6 x 4.0 cm. There is diffuse increased cortical echogenicity in both kidneys consistent with medical renal disease. There are bilateral anechoic renal cysts measuring 1.5 cm maximal diameter at the lower pole of the right kidney and 1.3 cm at the mid left kidney. There is no hydronephrosis in either kidney. No stones identified. The bladder is normal. IMPRESSION: 1. Diffuse bilateral increased renal cortical echogenicity consistent with medical renal disease. No hydronephrosis. -patient is on Lasix at home, will hold Lasix (2) Insomnia: Code(s): G47.00 - Insomnia, unspecified Status: Acute Assessment and Plan: - Unable to get Lunesta. Unable to sleep with Melatonin. - Discontinue Melatonin and add Ambien 10 mg at bedtime as needed. (3) Hypokalemia: Code(s): E87.6 - Hypokalemia Status: Acute Assessment and Plan: - Potassium 3.3. Patient given Potassium chloride 40 meq PO x1. - Monitor labs. (4) Gastroesophageal reflux disease: Code(s): K21.9 - Gastro-esophageal reflux disease without esophagitis Status: Acute Assessment and Plan: - PPI (5) Back pain: Code(s): M54.9 - Dorsalgia, unspecified Status: Acute Assessment and Plan: -Tylenol p.r.n. (6) Essential hypertension: Code(s): I10 - Essential (primary) hypertension Status: Chronic Assessment and Plan: - Blood pressure 143/52 - continue amlodipine (7) Pacemaker: Code(s): Z95.0 - Presence of cardiac pacemaker Status: Acute Assessment and Plan: -continue to monitor Subjective Date/time seen: 12/28/23 13:16 Interval history: Patient reports that she has not slept the last two nights with the melatonin. Patient takes Lunesta at home which we do not carry. Patient has taken Ambien 12.5 mg in the past with good sleep results. Patient reports a headache that is a 7 , constant, and aching. Patient contributes headache to not sleeping well. Patient reports a loose bowel movement today that she contributes to the Nepro. Denies chest pain, palpitations, dizziness, nausea, vomiting, or difficulty urinating. Review of Systems Review of Systems: All systems reviewed & are unremarkable except as noted in HPI and below Exam Const: General: no acute distress Eyes: Sclera: sclerae normal Resp: Effort & Inspection: normal respiratory effort Auscultation: clear to auscultation bilaterally Cardio: Rate: regular rate Rhythm: regular rhythm GI: GI Palp: Yes Soft to palpation Auscultation: normal bowel sounds Skin: General skin exam: no rashes or lesions noted Extrem: General: pedal edema bilaterally (Trace pedal edema. ) Psych: Mental Status: mental status grossly normal Affect: normal affect Objective Data Vital Signs Vital Signs: Vital Signs - 24 hr 12/27/23 14:00 12/27/23 20:01 12/27/23 20:54 Temperature 97.6 F 97.9 F Pulse Rate 60 60 60 Respiratory Rate 14 20 Blood Pressure 124/52 L 126/49 L Pulse Oximetry 99 100 12/28/23 05:20 12/28/23 08:23 Temperature 98.3 F Pulse Rate 61 60 Respiratory Rate 18 Blood Pressure 143/52 H Pulse Oximetry 100 Intake/Output Intake/Output: Intake & Output 12/25/23 12/26/23 12/27/23 12/28/23 23:59 23:59 23:59 23:59 Intake Total 1220 3647.5 600 Output Total 0 Balance 1220 3647.5 600 Med
[2023-12-28 14:00] VITALS: BP 130/41; PULSE 63; RESP 16; TEMP 36.3; O2SAT 100
[2023-12-28] MEDS: SODIUM CHLORIDE 0.9% IV 1,000 ML 75 ML IV CONT (14:27)
[2023-12-28 20:31] VITALS: PULSE 60
[2023-12-28] MEDS: ZOLPIDEM TARTRATE (*CRX) 5 MG TABLET 10 MG PO (20:31)
[2023-12-28] MEDS: FAMOTIDINE 20 MG TABLET 40 MG PO (20:31)
[2023-12-28 20:59] VITALS: BP 136/45; PULSE 60; RESP 18; TEMP 36.6; O2SAT 100
[2023-12-29 06:00] VITALS: BP 140/46; PULSE 65; RESP 18; TEMP 36.4; O2SAT 100
[2023-12-29 06:04] LABS: Basophils Absolute Auto 0.1 K/mm3 (0.0-0.1); Basophils Percent Auto 0.9 % (0.2-1.2); Eosinophils Absolute Auto 0.2 K/mm3 (0-0.3); Eosinophils Percent Auto 3.1 % (0-4.4); Hematocrit 28.1 % (37.0-47.0); Hemoglobin 8.6 g/dL (12.0-15.0); Immature Granulocyte Absolute 0.01 K/mm3 (0.00-0.031); Immature Granulocyte Percent A 0.2 % (0-0.5); Lymphocytes Absolute Auto 2.02 K/mm3 (0.9-3.2); Mean Corpuscular HGB Conc 30.6 g/dl (32-36); Mean Corpuscular Hemoglobin 28.6 pg (26-34); Mean Corpuscular Volume 93.4 fl (80-100); Mean Platelet Volume 10.1 fl (7.4-10.4); Monocytes Absolute Auto 0.7 K/mm3 (0.1-0.6); Monocytes Percent Auto 12.3 % (2.6-8.5); Neutrophils Absolute Auto 2.5 K/mm3 (1.3-6.7); Neutrophils Percent Auto 46.5 % (45.5-73.1); Platelet Count Result 176 k/mm3 (150-375); Red Blood Count 3.01 M/mm3 (4.2-5.4); Red Cell Distribution Width 14.8 % (11.5-14.5); White Blood Count 5.5 K/mm3 (4.5-10.0)
[2023-12-29 06:19] LABS: Alanine Aminotransferase 32 U/L (6-35); Albumin Level 3.9 g/dL (3.5-5.1); Alkaline Phosphatase 47 U/L (38-126); Anion Gap 10 mmol/L (4-12); Aspartate Amino Transferase 21 U/L (14-36); Bilirubin,Total 0.5 mg/dL (0.2-1.3); Blood Urea Nitrogen 52 mg/dL (7-17); Calcium 9.7 mg/dL (8.4-10.2); Carbon Dioxide 21 mmol/L (22-30); Chloride 113 mmol/L (98-107); Estimated CRCL calculation 14 ml/min; Estimated Glomerular Filt Rate 17; Glucose 96 mg/dL (65-110); Potassium 3.5 mmol/L (3.4-5.0); Sodium 144 mmol/L (137-145)
[2023-12-29 08:39] VITALS: PULSE 65
[2023-12-29] MEDS: APIXABAN 5 MG TABLET PO (08:39)
[2023-12-29] MEDS: carvediloL 25 MG TABLET PO (08:39)
[2023-12-29] MEDS: FERROUS SULFATE 325 MG TABLET DR PO (08:39)
[2023-12-29] MEDS: amLODIPine BESYLATE 10 MG TABLET PO (08:39)
[2023-12-29] MEDS: allopurinoL 100 MG TABLET PO (08:39)
[2023-12-29] MEDS: busPIRone HCL 2.5 MG TABLET PO (08:40)
[2023-12-29] MEDS: SODIUM CHLORIDE 0.9% IV 1,000 ML 75 ML IV CONT (08:41)
--- NOTE | 2023-12-29 10:45 | PM.PNNEP ---
Progress Note: A&P Assessment and Plan (1) Acute kidney injury: Code(s): N17.9 - Acute kidney failure, unspecified Status: Acute Assessment and Plan: slow improvement noted etiology(?): possible overdiuresis progression of CKD other? evaluation to date noted: renal ultrasound c/w CKD urine electrolytes (by FeNA and FeUrea) non-prerenal urine eosinophils negative moderate proteinuria CPK normal holding diuretics for now (CXR clear and no swelling/edema noted) on IVFs -- wean off as tolerated follow trend of repeat labs and UOP (2) Chronic kidney disease, stage IV (severe): Code(s): N18.4 - Chronic kidney disease, stage 4 (severe) Status: Chronic Assessment and Plan: from review of records I could find, baseline creatinine runs around 2.1 - 2.6mg/dl in the last year or so cannot deny the possibility of CKD progression playing a role presumably due to hypertension and age-related change follows with Dr. Claudio for CKD management attempted to get office records (from Dr. Claudio) to review but still unavailable (3) Hypokalemia: Code(s): E87.6 - Hypokalemia Status: Acute Assessment and Plan: due to diuretic therapy +/- poor oral intake +/- previous diarrhea cautious replacement follow repeat K+ levels (4) Essential hypertension: Code(s): I10 - Essential (primary) hypertension Status: Chronic Assessment and Plan: reasonable control at this time continue home medications follow trend of hemodynamics (5) Anemia: Code(s): D64.9 - Anemia, unspecified Status: Acute Assessment and Plan: due to CKD (?) follow trend of H/H - relatively stable consider STEVE while hospitalized if H/H worsens Not opposed to discharge from renal perspective if otherwise medically stable -- 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 Will continue to follow. Subjective Date/time seen: 12/29/23 10:45 Interval history: Follow-up for acute kidney injury/acute renal failure on chronic kidney disease. Renal function/creatinine continues to improve with current therapy/interventions (IVFs + holding diuretics); continues to make reasonable urine output as well; no apparent distress voiced at the time of my visit; no other issues/events overnight or earlier this morning. Exam Narrative: General: elderly but WD/WN female in NAD Heart: normal S1 and S2; no rub Lungs: clear to auscultation Abdomen: soft, nontender, nondistended, positive bowel sounds Extremities: no cyanosis or clubbing; no edema Skin: no rash or nodules Objective Data Vital Signs Vital Signs: Vital Signs Temp Pulse Resp BP Pulse Ox 12/29/23 08:39 65 12/29/23 06:00 97.6 F 65 18 140/46 L 100 12/28/23 20:59 98 F 60 18 136/45 L 100 12/28/23 20:31 60 12/28/23 14:00 97.4 F L 63 16 130/41 L 100 Intake/Output Intake/Output: Intake & Output 12/26/23 12/27/23 12/28/23 12/29/23 23:59 23:59 23:59 23:59 Intake Total 1220 3647.5 1850 1390 Output Total 0 Balance 1220 3647.5 1850 1390 Meds/Results Medications: Active Medications Generic Name Dose Route Start Last Admin Trade Name Freddieq PRN Reason Stop Dose Admin Acetaminophen 1,000 mg 12/26/23 20:36 12/28/23 08:30 Acetaminophen 500 Mg Tablet PO 1,000 mg Q6H PRN Administration Mild Pain (1-3) or Fever Allopurinol 100 mg 12/26/23 09:00 12/29/23 08:39 Allopurinol 100 Mg Tablet PO 100 mg DAILY SANTA Administration Amlodipine Besylate 10 mg 12/26/23 09:00 12/29/23 08:39 Amlodipine Besylate 10 Mg Tablet PO 10 mg DAILY SANTA Administration Apixaban 5 mg 12/26/23 11:25 12/29/23 08:39 Apixaban 5 Mg Tablet PO 5 mg Q12HR SANTA Administration Buspirone HCl 2.5 mg 12/26/23 09:00 12/29/23 08:40 Buspirone Hcl 2.5 Mg Tablet PO 2.5
--- NOTE | 2023-12-29 10:45 | P.PNNP_ITS ---
Progress Note: A&P Assessment and Plan (1) Acute kidney injury: Code(s): N17.9 - Acute kidney failure, unspecified Status: Acute Assessment and Plan: * slow improvement noted * etiology(?): * possible overdiuresis * progression of CKD * other? * evaluation to date noted: * renal ultrasound c/w CKD * urine electrolytes (by FeNA and FeUrea) non-prerenal * urine eosinophils negative * moderate proteinuria * CPK normal * holding diuretics for now (CXR clear and no swelling/edema noted) * on IVFs -- wean off as tolerated * follow trend of repeat labs and UOP (2) Chronic kidney disease, stage IV (severe): Code(s): N18.4 - Chronic kidney disease, stage 4 (severe) Status: Chronic Assessment and Plan: * from review of records I could find, baseline creatinine runs around 2.1 - 2.6mg/dl in the last year or so * cannot deny the possibility of CKD progression playing a role * presumably due to hypertension and age-related change * follows with Dr. Claudio for CKD management * attempted to get office records (from Dr. Claudio) to review but still unavailable (3) Hypokalemia: Code(s): E87.6 - Hypokalemia Status: Acute Assessment and Plan: * due to diuretic therapy +/- poor oral intake +/- previous diarrhea * cautious replacement * follow repeat K+ levels (4) Essential hypertension: Code(s): I10 - Essential (primary) hypertension Status: Chronic Assessment and Plan: * reasonable control at this time * continue home medications * follow trend of hemodynamics (5) Anemia: Code(s): D64.9 - Anemia, unspecified Status: Acute Assessment and Plan: * due to CKD (?) * follow trend of H/H - relatively stable * consider STEVE while hospitalized if H/H worsens Not opposed to discharge from renal perspective if otherwise medically stable -- 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 Will continue to follow. Subjective Date/time seen: 12/29/23 10:45 Interval history: Follow-up for acute kidney injury/acute renal failure on chronic kidney disease. Renal function/creatinine continues to improve with current therapy/interventions (IVFs + holding diuretics); continues to make reasonable urine output as well; no apparent distress voiced at the time of my visit; no other issues/events overnight or earlier this morning. Exam Narrative: General: elderly but WD/WN female in NAD Heart: normal S1 and S2; no rub Lungs: clear to auscultation Abdomen: soft, nontender, nondistended, positive bowel sounds Extremities: no cyanosis or clubbing; no edema Skin: no rash or nodules Objective Data Vital Signs Vital Signs: Vital Signs Temp Pulse Resp BP Pulse Ox 12/29/23 08:39 65 12/29/23 06:00 97.6 F 65 18 140/46 L 100 12/28/23 20:59 98 F 60 18 136/45 L 100 12/28/23 20:31 60 12/28/23 14:00 97.4 F L 63 16 130/41 L 100 Intake/Output Intake/Output: Intake & Output 12/26/23 12/27/23 12/28/23 12/29/23 23:59 23:59 23:59 23:59 Intake Total 1220 3647.5 1850 1390 Output Total 0 Balance 1220 3647.5 1850 1390 Meds/Results Medications:
--- NOTE | 2023-12-29 11:04 | PM.DS ---
DS: Admitting Diagnosis Discharge Date 12/29/23 Admitting Diagnosis Abnormal lab DS: Discharge Diagnosis Discharge Diagnosis (1) Acute kidney injury: Code(s): N17.9 - Acute kidney failure, unspecified Status: Acute (2) Chronic kidney disease, stage IV (severe): Code(s): N18.4 - Chronic kidney disease, stage 4 (severe) Status: Chronic (3) Anemia: Code(s): D64.9 - Anemia, unspecified Status: Acute DS: Summary Hospital Course Hospital Course: -12/25/23: BUN 93, Creatinine 5.20, GFR 10 -12/26/23: BUN 84, Creatinine 4.50, GFR 12 -12/27/23: BUN 78, Creatinine 4.60, GFR 11 -12/28/23: BUN 66, Creatinine 3.60, GFR 15 -12/29/23: BUN 52, Creatinine 3.30, GFR 17 Patient responded well to IV fluids and stopping of diuretics. Renal ultrasound on 12/27/23 showed: FINDINGS: The right kidney measures 9.4 x 4.3 x 5.3 cm. The left kidney measures 10.1 x 4.6 x 4.0 cm. There is diffuse increased cortical echogenicity in both kidneys consistent with medical renal disease. There are bilateral anechoic renal cysts measuring 1.5 cm maximal diameter at the lower pole of the right kidney and 1.3 cm at the mid left kidney. There is no hydronephrosis in either kidney. No stones identified. The bladder is normal. IMPRESSION: 1. Diffuse bilateral increased renal cortical echogenicity consistent with medical renal disease. No hydronephrosis. Patient has a follow up appointment already scheduled with [employer] [facility]. Claudio on Sunday. Status at Discharge Functional status at discharge: independent ambulation Overall status at discharge: patient is progressing back to baseline Time Spent with Patient Time attestation: Total time spent providing and/or coordinating discharge services: Time spent: Greater than 30 minutes Exam Const: General: comfortable and no acute distress Eyes: Sclera: sclerae normal Resp: Auscultation: clear to auscultation bilaterally Cardio: Rate: regular rate Rhythm: regular rhythm GI: GI Palp: Yes Soft to palpation Auscultation: normal bowel sounds Skin: General skin exam: no rashes or lesions noted Neuro: General: gait normal Extrem: General: no pedal edema Psych: Mental Status: mental status grossly normal Affect: normal affect DS: Data Data Completed and Pending Labs on day of discharge: Labs from last 24 hours 12/29/23 05:43 WBC 5.5 RBC 3.01 L Hgb 8.6 L Hct 28.1 L MCV 93.4 MCH 28.6 MCHC 30.6 L RDW 14.8 H Plt Count 176 MPV 10.1 Immature Gran % (Auto) 0.2 Neut % (Auto) 46.5 Lymph % (Auto) 37.0 Franklin % (Auto) 12.3 H Eos % (Auto) 3.1 Baso % (Auto) 0.9 Lymph # (Auto) 2.02 Franklin # (Auto) 0.7 H Eos # (Auto) 0.2 Baso # (Auto) 0.1 Abs Immat Gran (auto) 0.01 Absolute Neuts (auto) 2.5 Absolute Nucleated RBC 0.000 Nucleated RBC % 0.0 Sodium 144 Potassium 3.5 Chloride 113 H Carbon Dioxide 21 L Anion Gap 10 BUN 52 H D Creatinine 3.30 H Estim Creat Clear Calc 14 Estimated GFR 17 L Glucose 96 Calcium 9.7 Total Bilirubin 0.5 AST 21 ALT 32 Alkaline Phosphatase 47 Total Protein 7.0 Albumin 3.9 Discharge Plan Discharge Attending physician on discharge: Miquel Escamilla Consulting providers: Stephanie Spears Discharging Clinician: Zoe Rodas Anticipated Discharge Date/Time: 12/29/23 01:00 Patient Disposition: Home, Self-Care Activity: may shower Diet: renal Discharge Instructions: -Discuss water pills with kidney doctor to see if he would like to resume. Report any swelling, shortness of breath, or weight gain of 3 lb in one day or 1 lb a day for 3 days. -Daily weights -Report any difficulty urinating. Patient Instructions: Antibiotic Form, Apixaban (By mouth), Chronic Kidney Disease (DC), Chronic Kidney Disease Diet (DC), Pain Management (DC) Stand Alone Forms: General Discharge Information Follow-up/Referrals: Sebas Claudio [Other] - Keep Reg. Scheduled Appt. Keshawn,Paty
[2023-12-29] MEDS: INFLUENZA VACCINE HIGH DOSE (>64) 180 MCG/0.5 ML SYRINGE IM (12:54)
== END 2023-12-29 13:00 | disposition home or self-care (01) | DRG 684 ==
LOC: ANHED 22:12 → ANH2MED 22:36
PROVIDERS: Internal Medicine Nephrology; Admitting Provider Internal Medicine; Emergency Provider Emergency Medicine; PCP Internal Medicine Gastroenterology; Visit Provider Nurse Practitioner Family
DX: N17.9 Acute kidney failure, unspecified (principal); Z23 Encounter for immunization; I12.9 Hypertensive chronic kidney disease with stage 1 through stage 4 chronic kidney disease, or unspecified chronic kidney disease; N18.4 Chronic kidney disease, stage 4 (severe); E87.6 Hypokalemia; D63.1 Anemia in chronic kidney disease; K21.9 Gastro-esophageal reflux disease without esophagitis; M19.90 Unspecified osteoarthritis, unspecified site; Z90.49 Acquired absence of other specified parts of digestive tract; Z95.0 Presence of cardiac pacemaker; G47.00 Insomnia, unspecified; M54.9 Dorsalgia, unspecified
CPT/HCPCS: 36415; 71045; 76775; 80048; 80053; 81001; 81050; 82550; 82570; 82948; 83735; 84156; 84300; 84443; 84540; 85025; 85999; 90471; 90662; 96360; 96361; 99285; A9270; G0008; G0378; J7030